=== PATIENT | female | born 1985 | race Caucasian/White ===

== ENCOUNTER → 2016-03-09 | Outpatient (CLI) | payer OTHER ==
[~2016-03-09] MED LIST: /ONDA4TA PO; /PANT40TA PO; ACET50TA PO; ALLE25CA OR; AMOX50SS OR; BACITAB3 PO; BUSP15TA47 PO; CALCIUM PO; CARA1TAB2 PO; CEFT250T PO; CELE10TA PO; CELE20TA OR; CELE20TA PO; CEPH2CAP PO; CLEO150C PO; CLEO300C2 PO; CLIN300C OR; COLA50CA3 PO; DIFL150T PO; GLUC1000 OR; LEVA750T PO; LEVO200T3 PO; LIDO5DIS PO; Lortab Elixir; Lortab Elixir PO; MIRA255PW PO; MULT1CHW21 PO; MULTIVIT; MULTIVIT OR; NS; ORAPRED PO; PERC2.5T PO; PRED10TA PO; PRED1TAB32 PO; SYNT100T OR; SYNT300T OR; SYNT300T2 PO; TYLE325T5 PO; TYLE500T78 PO; VITA50TA12 OR; WELL75TA OR; XANA0.25 PO; ZANT150T PO; [UNRECOGNIZED DRUG - OTHER] PO; lidocaine; lidocaine 2% PO; orapred PO; synthroid PO
[2016-03-09 12:36] LABS: FREE T4 1.36 NG/DL (0.76-1.46)
== END ==
LOC: M LAB 11:31
PROVIDERS: ATTEND Physician Assistant
DX: E89.0 Postprocedural hypothyroidism (principal)

== ENCOUNTER → 2016-03-25 | Outpatient (CLI) | payer OTHER ==
--- NOTE | 2016-03-26 04:34 | REP ---
Clinical: Abnormal thyroid function tests. Technique: Real time gallegos scale and color evaluation using linear high frequency transducer. Findings: The patient is noted to be status post thyroidectomy. Heterogeneous soft tissue mass in the right side of the neck measures 2.3 x 1.0 x 0.8 cm and appears relatively stable compared to prior examinations dated through 2012. A 5 x 2 x 4 mm hypoechoic lesion at the midline likely represent small lymph node. No further abnormalities are identified. Impression: Heterogeneous soft tissue mass in the right side of the neck is essentially unchanged compared to 2012 and may represent small area of residual thyroid tissue. Thyroid scintigraphy may be warranted for further investigation. Signed by Edison Curtis MD 03/26/2016 04:26 A
== END ==
LOC: M RAD 16:29
PROVIDERS: ATTEND Physician Assistant
DX: R94.6 Abnormal results of thyroid function studies (principal)

== ENCOUNTER 2016-07-10 20:49 | Emergency (ER) | payer OTHER ==
[~2016-07-10] VITALS: Ht 167.6 cm; Wt 93.0 kg
[2016-07-10] MEDS ORDERED: TOPA50TA7 PO (21:00)
[2016-07-10] MEDS ORDERED: ZOLO25TA PO (21:00)
[2016-07-10] MEDS ORDERED: METF1000 PO (21:00)
[2016-07-10 22:41] LABS: BASO % 0.5 % (0.0-1.0); EOS # 0.2 K/mm3 (0.0-0.50); EOS % 1.7 % (0.0-3.0); LARGE UNSTAINED CELL # 0.2 K/mm3 (0.0-0.4); LARGE UNSTAINED CELL % 1.7 % (0.0-4.0); LYMPH # 2.6 K/mm3 (1.5-4.5); LYMPH % 24.9 % (24.0-44.0); MEAN CORPUSCULAR HEMOGLOBIN 28.6 pg (27.0-33.0); MEAN CORPUSCULAR HGB CONC 32.7 g/dl (32.0-36.5); MEAN CORPUSCULAR VOLUME 87.4 fl (80.0-96.0); MONO # 0.5 K/mm3 (0.0-0.8); NEUTROPHILS # 6.9 K/mm3 (1.8-7.7); NEUTROPHILS % 66.2 % (36.0-66.0); PLATELET COUNT, AUTOMATED 505 k/mm3 (150-450); RED CELL DISTRIBUTION WIDTH 13.2 % (11.5-14.5); WHITE BLOOD COUNT 10.4 K/mm3 (4.0-10.0)
[2016-07-10 23:11] LABS: ALBUMIN 3.9 GM/DL (3.2-5.2); ALKALINE PHOSPHATASE 91 U/L (45-117); ALT/SGPT 25 U/L (12-78); ANION GAP 7 MEQ/L (8-16); AST/SGOT 13 U/L (15-37); BILIRUBIN,DIRECT < 0.1 MG/DL (0.0-0.2); BILIRUBIN,TOTAL 0.3 MG/DL (0.2-1.0); BLOOD UREA NITROGEN 12 MG/DL (7-18); CARBON DIOXIDE LEVEL 26 MEQ/L (21-32); CHLORIDE LEVEL 110 MEQ/L (98-107); CREATININE FOR GFR 0.83 MG/DL (0.55-1.02); GLOMERULAR FILTRATION RATE > 60.0 (>60); GLUCOSE, FASTING 65 MG/DL (70-105); POTASSIUM SERUM 3.4 MEQ/L (3.5-5.1); SODIUM LEVEL 143 MEQ/L (136-145); T UPTAKE 38 % (30-39); THYROXINE (T4) 10.8 UG/DL (4.5-12.0); TOTAL PROTEIN 7.8 GM/DL (6.4-8.2)
[2016-07-10 23:50] VITALS: BP 110/59
== END 2016-07-10 23:59 | disposition home or self-care (01) ==
LOC: M ED 23:05
DX: E16.2 Hypoglycemia, unspecified (principal); Z98.84 Bariatric surgery status; J45.909 Unspecified asthma, uncomplicated; F32.9 Major depressive disorder, single episode, unspecified; F41.9 Anxiety disorder, unspecified; E28.2 Polycystic ovarian syndrome; G47.33 Obstructive sleep apnea (adult) (pediatric); Z85.850 Personal history of malignant neoplasm of thyroid

== ENCOUNTER → 2016-08-25 | Outpatient (CLI) | payer OTHER ==
[~2016-08-25] MED LIST changes: +BACITAB PO; -BACITAB3 PO; -LEVA750T PO; +LEVA750T7 PO; +METF10004 PO; +TOPA50TA8 PO; +ZOLO25TA PO
[2016-08-25 13:46] LABS: FREE T4 1.4 NG/DL (0.76-1.46)
== END ==
LOC: M LAB 11:17
PROVIDERS: ATTEND Physician Assistant
DX: E89.0 Postprocedural hypothyroidism (principal)

== ENCOUNTER → 2016-09-08 | Outpatient (CLI) | payer MEDICAID | LOC: M OUTALCOH 10:31 | PROVIDERS: ATTEND Psychiatry & Neurology Psychiatry | DX: Z13.9 Encounter for screening, unspecified (principal) ==

== ENCOUNTER → 2017-01-07 | Outpatient (CLI) | payer OTHER ==
[2017-01-07 17:05] LABS: FREE T4 1.15 NG/DL (0.76-1.46)
== END ==
LOC: M LAB 15:39
PROVIDERS: ATTEND Physician Assistant
DX: E05.80 Other thyrotoxicosis without thyrotoxic crisis or storm (principal); E16.2 Hypoglycemia, unspecified

== ENCOUNTER → 2017-03-23 | Outpatient (CLI) | payer OTHER ==
[2017-03-23 18:08] LABS: HEMATOCRIT 40.5 % (36.0-47.0); HEMOGLOBIN 13.4 g/dl (12.0-16.0); MEAN CORPUSCULAR HEMOGLOBIN 27.9 pg (27.0-33.0); MEAN CORPUSCULAR HGB CONC 33.1 g/dl (32.0-36.5); MEAN CORPUSCULAR VOLUME 84.4 fl (80.0-96.0); PLATELET COUNT, AUTOMATED 470 10^3/uL (150-450); RED CELL DISTRIBUTION WIDTH 14.1 % (11.5-14.5); WHITE BLOOD COUNT 8.1 10^3/uL (4.0-10.0)
[2017-03-23 19:42] LABS: IRON (FE) 165 UG/DL (50-170)
[2017-03-23 19:42] LABS: FERRITIN 19 NG/ML (8-252)
== END ==
LOC: M LAB 17:00
DX: E89.0 Postprocedural hypothyroidism (principal); Z98.84 Bariatric surgery status
CPT/HCPCS: 83540

== ENCOUNTER 2017-04-14 19:24 | Emergency (ER) | payer OTHER ==
[2017-04-14] MEDS: NS 1,000 ML IV (20:30)
[2017-04-14] MEDS: GI COCKTAIL 50ML BTL(HYOSCYAMINE/MAALOX/LIDOCAINE VISCOUS)(1:3:1) PO (21:11)
[2017-04-14] MEDS: PANTOPRAZOLE 40MG INJ (PROTONIX) (C9113) IV (21:11)
[2017-04-14 21:19] LABS: BASO % 0.3 % (0.0-1.0); HEMATOCRIT 36.7 % (36.0-47.0); IMMATURE GRANULOCYTE % 0.3 % (0-3.0); LYMPH # 2.5 10^3/uL (1.5-4.5); LYMPH % 21.7 % (24.0-44.0); MEAN CORPUSCULAR HGB CONC 32.7 g/dl (32.0-36.5); MEAN CORPUSCULAR VOLUME 85.5 fl (80.0-96.0); MONO % 8.2 % (0.0-5.0); NEUTROPHILS % 69.5 % (36.0-66.0); PLATELET COUNT, AUTOMATED 508 10^3/uL (150-450); RED BLOOD COUNT 4.29 10^6/uL (4.00-5.40); RED CELL DISTRIBUTION WIDTH 14.2 % (11.5-14.5); WHITE BLOOD COUNT 11.6 10^3/uL (4.0-10.0)
[2017-04-14 21:36] LABS: ALBUMIN 3.7 GM/DL (3.2-5.2); ALBUMIN/GLOBULIN RATIO 1.06 (1.00-1.93); ALKALINE PHOSPHATASE 105 U/L (45-117); ALT/SGPT 20 U/L (12-78); ANION GAP 7 MEQ/L (8-16); AST/SGOT 19 U/L (7-37); BILIRUBIN,TOTAL 0.1 MG/DL (0.2-1.0); BLOOD UREA NITROGEN 16 MG/DL (7-18); CALCIUM LEVEL 8.4 MG/DL (8.5-10.1); CARBON DIOXIDE LEVEL 29 MEQ/L (21-32); CHLORIDE LEVEL 105 MEQ/L (98-107); CREATININE FOR GFR 0.65 MG/DL (0.55-1.30); GLOMERULAR FILTRATION RATE > 60.0 (>60); GLUCOSE, FASTING 80 MG/DL (70-100); LIPASE 146 U/L (73-393); POTASSIUM SERUM 3.7 MEQ/L (3.5-5.1); SODIUM LEVEL 141 MEQ/L (136-145); TOTAL PROTEIN 7.2 GM/DL (6.4-8.2)
[2017-04-14 21:39] LABS: APPEARANCE, URINE CLEAR (CLEAR); BACTERIA, URINE AUTO NEGATIVE (NEGATIVE); BILIRUBIN, URINE AUTO NEGATIVE (NEGATIVE); BLOOD, URINE BLOOD NEGATIVE (NEGATIVE); COLOR, URINE STRAW (YELLOW); GLUCOSE, URINE (UA) AUTO NEGATIVE (NEGATIVE); KETONE, URINE AUTO NEGATIVE (NEGATIVE); LEUKOCYTE ESTERASE, URINE AUTO NEGATIVE (NEGATIVE); NITRITE, URINE AUTO NEGATIVE (NEGATIVE); PROTEIN, URINE AUTO NEGATIVE (NEGATIVE); RBC, URINE AUTO 0 /HPF (0-3); SPECIFIC GRAVITY URINE AUTO 1.012 (1.002-1.035); SQUAMOUS EPITHELIAL CELL UR AU 0 /HPF (0-6); UROBILINOGEN, URINE AUTO 0.2 mg/dL (0.0-2.0); WBC, URINE AUTO 3 /HPF (0-3)
[2017-04-14] MEDS: ACETAMINOPHEN 325 MG TAB PO (22:44)
[2017-04-14] MEDS: GASTROGRAFIN SOLUTION 30ML PO ×2 (23:00→23:23)
[2017-04-15] MEDS ORDERED: ISOVUE-370 76% 100ML VIAL (Q9967) As Ordered (00:08)
== END 2017-04-15 01:23 | disposition home or self-care (01) ==
LOC: M ED 04-15 01:23
DX: K29.70 Gastritis, unspecified, without bleeding (principal); J45.909 Unspecified asthma, uncomplicated; E28.2 Polycystic ovarian syndrome; Z98.84 Bariatric surgery status; Z79.899 Other long term (current) drug therapy; Z88.8 Allergy status to other drugs, medicaments and biological substances
CPT/HCPCS: C9113

== ENCOUNTER 2017-04-24 18:58 | Inpatient (IN) | payer OTHER ==
[2017-04-24 20:41] LABS: KETONE, URINE AUTO RFX TRACE mg/dL (NEGATIVE); LEUKOCYTE ESTERASE UR AUTO RFX TRACE (NEGATIVE); MUCUS, URINE RFX SMALL (NEGATIVE); NITRITE, URINE AUTO RFX NEGATIVE (NEGATIVE); RBC, URINE AUTO RFX 3 /HPF (0-3); SPECIFIC GRAVITY UR AUTO RFX 1.025 (1.002-1.035); SQUAM EPITHELIAL CELL UR AURFX 11 /HPF (0-6); WBC, URINE AUTO RFX 4 /HPF (0-3)
[2017-04-24 22:04] LABS: BASO # 0.1 10^3/uL (0.0-0.2); BASO % 0.7 % (0.0-1.0); HEMATOCRIT 38.6 % (36.0-47.0); HEMOGLOBIN 12.7 g/dl (12.0-16.0); IMMATURE GRANULOCYTE % 0.3 % (0-3.0); LYMPH # 2.5 10^3/uL (1.5-4.5); LYMPH % 22.3 % (24.0-44.0); MEAN CORPUSCULAR HEMOGLOBIN 28.1 pg (27.0-33.0); MEAN CORPUSCULAR HGB CONC 32.9 g/dl (32.0-36.5); MEAN CORPUSCULAR VOLUME 85.4 fl (80.0-96.0); MONO # 0.8 10^3/uL (0.0-0.8); MONO % 6.9 % (0.0-5.0); NEUTROPHILS # 7.8 10^3/uL (1.8-7.7); NEUTROPHILS % 69.8 % (36.0-66.0); PLATELET COUNT, AUTOMATED 546 10^3/uL (150-450); RED BLOOD COUNT 4.52 10^6/uL (4.00-5.40); RED CELL DISTRIBUTION WIDTH 14.5 % (11.5-14.5); WHITE BLOOD COUNT 11.1 10^3/uL (4.0-10.0)
[2017-04-24] MEDS: NS 1,000 ML IV (22:21)
[2017-04-24] MEDS: METOCLOPRAMIDE INJ 10MG/2ML VIAL (J2765) IV (22:21)
[2017-04-24] MEDS: MORPHINE 4 MG/ML 1ML VIAL (J2270) IV (22:29)
[2017-04-24 22:30] LABS: ALBUMIN 3.8 GM/DL (3.2-5.2); ALBUMIN/GLOBULIN RATIO 0.93 (1.00-1.93); ALKALINE PHOSPHATASE 88 U/L (45-117); ALT/SGPT 25 U/L (12-78); ANION GAP 7 MEQ/L (8-16); AST/SGOT 26 U/L (7-37); BILIRUBIN,DIRECT 0.1 MG/DL (0.0-0.2); BILIRUBIN,TOTAL 0.2 MG/DL (0.2-1.0); BLOOD UREA NITROGEN 5 MG/DL (7-18); CALCIUM LEVEL 9.2 MG/DL (8.5-10.1); CARBON DIOXIDE LEVEL 31 MEQ/L (21-32); CHLORIDE LEVEL 103 MEQ/L (98-107); CREATININE FOR GFR 0.76 MG/DL (0.55-1.30); GLOMERULAR FILTRATION RATE > 60.0 (>60); GLUCOSE, FASTING 85 MG/DL (70-100); LIPASE 84 U/L (73-393); POTASSIUM SERUM 3.8 MEQ/L (3.5-5.1); SODIUM LEVEL 141 MEQ/L (136-145); TOTAL PROTEIN 7.9 GM/DL (6.4-8.2)
[2017-04-24] MEDS ORDERED: ISOVUE-370 76% 100ML VIAL (Q9967) As Ordered (22:34)
[2017-04-25] MEDS: LR 1,000 ML IV ×4 (01:45→22:00)
[2017-04-25] MEDS: KETOROLAC 30 MG/ML VIAL (J1885) IV ×2 (01:45→20:36)
[2017-04-25] MEDS: ACETAMINOPHEN TAB 650MG DOSE (2X325MG) PO (07:35)
[2017-04-25] MEDS: PANTOPRAZOLE 40MG INJ (PROTONIX) (C9113) IV (08:11)
[2017-04-25] MEDS: MORPHINE 4 MG/ML 1ML VIAL (J2270) IV (08:19)
[2017-04-25] MEDS: ONDANSETRON 4MG/2ML VIAL (J2405) IV ×2 (08:21→18:19)
[2017-04-25 11:29] LABS: HCG, SERUM QUANTITATIVE < 1.0 MIU/ML
[2017-04-25] MEDS: ERTAPENEM 1 GM INJ (INVanz) (J1335) As Ordered (14:25)
[2017-04-25] MEDS ORDERED: fentaNYL 250 MCG/5 ML INJECTION (J3010) As Ordered (14:38)
[2017-04-25] MEDS ORDERED: MIDAZOLAM INJ 2 MG/2 ML VIAL (J2250) As Ordered (14:38)
[2017-04-25] MEDS ORDERED: PROPOFOL 200 MG/20 ML VIAL As Ordered (14:39)
[2017-04-25] MEDS ORDERED: LIDOCAINE 2% INJ 100 MG/5 ML SDV (FOR ANES.) As Ordered (14:39)
[2017-04-25] MEDS ORDERED: ROCURONIUM BROMIDE 50 MG/5 ML VIAL As Ordered ×2 (14:41→16:31)
[2017-04-25] MEDS ORDERED: SUCCINYLCHOLINE 100 MG/5 ML SYRINGE (J0330) As Ordered (15:16)
[2017-04-25] MEDS ORDERED: ONDANSETRON 4MG/2ML VIAL (J2405) As Ordered ×2 (16:44→18:17)
[2017-04-25] MEDS ORDERED: GLYCOPYRROLATE INJ 0.2 MG/ML 2 ML VIAL As Ordered (16:44)
[2017-04-25] MEDS ORDERED: KETOROLAC 60 MG/2 ML VIAL (J1885) As Ordered (16:44)
[2017-04-25] MEDS ORDERED: NEOSTIGMINE 10 MG/10 ML VIAL (J2710) As Ordered (16:44)
[2017-04-25] MEDS ORDERED: METOCLOPRAMIDE INJ 10MG/2ML VIAL (J2765) As Ordered (16:45)
[2017-04-25] MEDS: BUPIVACAINE HCL 0.25% 30 ML VIAL As Ordered (17:25)
[2017-04-25] MEDS ORDERED: METOCLOPRAMIDE INJ 10MG/2ML VIAL (J2765) IV (18:15)
[2017-04-25] MEDS ORDERED: MORPHINE 10 MG/ML 1ML VIAL (J2270) IV (18:15)
[2017-04-25] MEDS ORDERED: fentaNYL 100 MCG/2 ML INJECTION (J3010) IV (18:15)
[2017-04-26] MEDS: MORPHINE 4 MG/ML 1ML VIAL (J2270) IV (00:18)
[2017-04-26] MEDS: ONDANSETRON 4MG/2ML VIAL (J2405) IV (00:18)
[2017-04-26] MEDS: KETOROLAC 30 MG/ML VIAL (J1885) IV (04:19)
[2017-04-26] MEDS: ACETAMINOPHEN TAB 650MG DOSE (2X325MG) PO (04:20)
[2017-04-26] MEDS: LEVOTHYROXINE 150MCG TABLET (0.15MG) PO (06:04)
[2017-04-26] MEDS: OMEPRAZOLE 20 MG CAP PO (09:01)
[2017-04-26] MEDS: NORCO, ANEXSIA 5/325MG TABLET (HYDROcodone/ACETAMINOPHEN) PO (13:05)
== END 2017-04-26 16:00 | disposition home or self-care (01) | DRG 227 ==
LOC: M ED INP 04-25 00:55 → M PED 04-25 18:34 → M ED 18:58
PROC: 0WQF4ZZ Repair Abdominal Wall, Percutaneous Endoscopic Approach (ICD-10-PCS; principal; 2017-04-25 11:33)
PROC: 0DBW4ZX Excision of Peritoneum, Percutaneous Endoscopic Approach, Diagnostic (ICD-10-PCS; 2017-04-25 11:33)
DX: K46.0 Unspecified abdominal hernia with obstruction, without gangrene (principal); K56.50 Intestinal adhesions [bands], unspecified as to partial versus complete obstruction; Z85.850 Personal history of malignant neoplasm of thyroid; E28.2 Polycystic ovarian syndrome; F41.9 Anxiety disorder, unspecified; F32.9 Major depressive disorder, single episode, unspecified; E89.0 Postprocedural hypothyroidism; Z90.81 Acquired absence of spleen; E66.9 Obesity, unspecified

== ENCOUNTER → 2017-05-22 | Outpatient (CLI) | payer OTHER | LOC: M RAD 07:31 | DX: R10.9 Unspecified abdominal pain (principal) ==

== ENCOUNTER → 2017-06-19 | Outpatient (CLI) | payer OTHER | LOC: M SLEEP 08:36 | DX: R56.9 Unspecified convulsions (principal) ==

== ENCOUNTER → 2017-09-08 | Outpatient (CLI) | payer OTHER ==
[2017-09-08 11:07] LABS: FREE T4 0.71 NG/DL (0.76-1.46)
== END ==
LOC: M LAB 10:15
DX: E89.0 Postprocedural hypothyroidism (principal)
CPT/HCPCS: 84443

== ENCOUNTER 2018-02-19 15:50 | Inpatient (IN) | payer OTHER ==
[~2018-02-19] VITALS: Ht 167.6 cm; Wt 114.4 kg
[~2018-02-19 15:50] MED LIST changes: +CVS20TAB PO; +FLUO40CA PO; +NORCOTAB PO; +OMEP20CA3 PO; +PROT1TAB2 PO; +VITACHTA PO
[2018-02-19] MEDS ORDERED: DEXTROSE 50% 50 ML SYRINGE As Ordered ONE (17:38)
[2018-02-19] MEDS ORDERED: DEXTROSE 50% 50 ML SYRINGE IV STA (17:42)
[2018-02-19 17:55] LABS: HEMATOCRIT 41.8 % (36.0-47.0); HEMOGLOBIN 13.8 g/dl (12.0-15.5); MEAN CORPUSCULAR HEMOGLOBIN 29.1 pg (27.0-33.0); MEAN CORPUSCULAR VOLUME 88.2 fl (80.0-96.0); PLATELET COUNT, AUTOMATED 465 10^3/uL (150-450); RED BLOOD COUNT 4.74 10^6/uL (4.00-5.40); WHITE BLOOD COUNT 9.2 10^3/uL (4.0-10.0)
[2018-02-19 18:23] LABS: BLOOD UREA NITROGEN 6 MG/DL (7-18); CALCIUM LEVEL 8.1 MG/DL (8.5-10.1); CARBON DIOXIDE LEVEL 25 MEQ/L (21-32); CHLORIDE LEVEL 110 MEQ/L (98-107); CREATININE FOR GFR 0.82 MG/DL (0.55-1.30); GLOMERULAR FILTRATION RATE > 60.0 (>60); GLUCOSE, FASTING 36 MG/DL (70-100); POTASSIUM SERUM 3.5 MEQ/L (3.5-5.1); SODIUM LEVEL 145 MEQ/L (136-145)
[2018-02-19] MEDS ORDERED: D10W/0.45% SODIUM CHLORIDE 1,000 ML IV SCH (18:45)
[2018-02-19 18:54] LABS: HEMOGLOBIN A1c 5.3 %
[2018-02-19] MEDS: D5W/0.45% SODIUM CHLORIDE 1,000 ML IV SCH ×3 (19:00→20:45)
[2018-02-19] MEDS ORDERED: SYNT25TA PO (20:27)
[2018-02-19] MEDS ORDERED: TOPI50TA9 PO (20:29)
[2018-02-19] MEDS ORDERED: PHEN-239 PO (20:29)
[2018-02-19] MEDS ORDERED: PATIENT COMMENTS (20:32)
[2018-02-19] MEDS ORDERED: GLUCAGON FOR INJ 1 MG VIAL (J1610) SC PRN (20:45)
[2018-02-19] MEDS ORDERED: DEXTROSE 50% 50 ML SYRINGE IV PRN (20:45)
[2018-02-19] MEDS ORDERED: GLUCOSE 4 GM CHEW TABLET PO PRN (20:45)
[2018-02-19] MEDS ORDERED: ACETAMINOPHEN 500 MG TAB PO PRN (20:45)
--- NOTE | 2018-02-19 22:17 | REPVR ---
EXAM: US Soft Tissue Head and Neck, Thyroid EXAM DATE/TIME: 02/19/2018 9:26 PM CLINICAL HISTORY: 32 years old, female; Screening exam; Personal history of cancer; Thyroid; Prior surgery; Surgery date: 6+ months; Surgery type: Bilateral thyroidectomy in 2006; Patient HX: Known regrowth from 2017 ultrasound; Additional info: HX thyroid cancer, S/P thyroidectomy(2006) TECHNIQUE: Real-time ultrasound scan of the neck with image documentation. Exam focused on the thyroid. COMPARISON: Thyroid, ST head+neck US 03/25/2016 4:45 PM FINDINGS: The patient has a history of previous thyroidectomy in 2006. In the region of the right lobe of the thyroid there is an oval area of tissue 2.3 CM in length by 1 CM in thickness and unchanged in size and appearance since 2017. This is probably residual or recurrent thyroid tissue. Along the left lobe of the thyroid there is a 1 CM in length by 6 mm in thickness soft tissue structure probably also remaining thyroid tissue. Reviewing the previous examination I suspect this is present as seen on the previous transverse images. No evidence of abnormality in the isthmus. IMPRESSION: 1. 2.3 CM by 1 CM area of residual thyroid tissue on the right unchanged since 2017. Electronically signed by: Juanito Hilton On 02/19/2018 22:16:47 PM
[2018-02-19 22:32] LABS: FREE T3 0.9 PG/ML (2.2-4.0); FREE T4 0.23 NG/DL (0.76-1.46)
[2018-02-19 22:54] LABS: ALBUMIN 3.3 GM/DL (3.2-5.2); ALT/SGPT 26 U/L (12-78); BILIRUBIN,DIRECT < 0.1 MG/DL (0.0-0.2); BILIRUBIN,TOTAL 0.2 MG/DL (0.2-1.0); TOTAL PROTEIN 6.8 GM/DL (6.4-8.2)
--- NOTE | 2018-02-20 00:02 | HPEPDOC ---
[facility] Medical History & Physical Date of Admission Feb 19, 2018 Primary Care Physician: Eliz Coughlin SENIOR FACILITIES MANAGER Attending Physician: TIAGO LIU MD History and Physical PRIMARY CARE PROVIDER: Ofelia Coughlin ATTENDING: Dr. Liu CHIEF COMPLAINT: Hypoglycemia HISTORY OF PRESENT ILLNESS: Patient is a 32-year-old female with significant past medical history of yair-en-Y gastric bypass presenting with chief complaint of recurrent hypoglycemia. She states earlier today in the afternoon she was eating a slice of pizza and then lay down for nap, when she woke up she had blurry vision, felt "drunk", and was profusely diaphoretic. She checked her blood sugar and her glucose was 31, so she ate some nearby candy to try and get her blood sugar back up, after which it was in the 70s. She states a similar event happen last May when she was on a dietary supplements but it resolved on its own. She states this happens from time to time but she is usually aware when her blood sugar starts to get low. She has not been taking her metformin (for PCOS) for last 2 weeks because she is on a teacher on and didn't want to take it. She also has been off her Topamax and phentermine for the same amount of time, which she takes at the direction of her bariatric surgeon has a weight loss drug for the past 3 months. She states that once a week she has nausea and feels the need to make herself throw up because she has such a great amount of postprandial fullness, she states this has been going on for the last 3 months. Of note she recently went to her wood ski maker at [employer] in [place] where she was found to have a TSH of 180 last Thursday, so her wood ski maker wanted to switch her from levothyroxine to armour but her insurance would not cover it so she is attempting to switch her insurance. As result she did not take her levothyroxine today. 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 Drinks occasional alcohol at social events. No marijuana, heroin, cocaine, PCP. FAMILY HISTORY: ALLERGIES: Please see below. REVIEW OF SYSTEMS: GENERAL: Denies fevers, chills, recent unexpected weight change, hemoptysis HEENT: Currently denies headache, dizziness, vision changes, hearing loss, sore throat CARDIOVASCULAR: Denies chest pain,palpitations, orthopnea RESPIRATORY: Denies shortness of breath, wheezing, cough GASTROINTESTINAL: Denies current nausea, vomiting, abdominal pain, constipation, bloody stool. Admits to chronic diarrhea secondary to her Yair-en-Y procedure. GENITOURINARY: Denies dysuria,urinary urgency, hematuria. MUSCULOSKELETAL: Denies muscle/joint pain, weakness, stiffness NEUROLOGICAL: Denies any numbness/tingling, focal weakness, or syncope Chronic diarrhea since her Yair-en-Y procedure, admits to feeling fatigued currently. HOME MEDICATIONS: Please see below. PHYSICAL EXAMINATION: Vitals: (see below) General: No acute distress, laying comfortably in bed. HEENT: Normocephalic, atraumatic. EOMI. Moist mucous membranes. Neck: No JVD or lymphadenopathy Cardiac: RRR, normal S1 and S2. No murmurs, gallops, rubs. Pulm: Clear to auscultation b/l. No wheezing, crackles, rhonchi Abd: Obese abdomen. Soft, non-tender, non-distended, no guarding, rebound tenderness, or rigidity. BSx4. Ext: No edema or cyanosis Neuro: Strength 5/5 BUE and BLE. CN 3-12 grossly intact. Sensation to fine touch intact. LABORATORY DATA: See below. IMAGIN02/19/18 Thyroid ultrasound: 2.3 cm X 1 cm area of residual thyroid tissue on the right unchanged since 2017 MICROBIOLOGY: Please see below. ASSESSMENT/PLAN: 32-year-old female presenting with chief complaint of recurrent episodes of hypoglycemia of unknown etiology differential diagnosis includes medication induced, insulinoma, adrenal tumor, pituitary tumor,noninsulinoma pancreatogenous hypoglycemia, post gastric bypass hypoglycemia. #. Hypoglycemia Giving patient D5 half-normal saline at 1 or 25 mL per hour with every 2 hours fingersticks. Should patient experience hypoglycemia we will switch to D10 Hemoglobin A1c of 5.3 Patient on hypoglycemic protocol Also obtaining labs for secondary causes of hypoglycemia including C-peptide, IGF-I, 2, proinsulin, insulin antibody, insulin level, sulfonylurea screen) Also ordering a.m. cortisol level to assess for possible adrenal dysfunction. Defer abdominal CT imaging to a.m. team to work up possible pancreatic, adrenal, or pituitary tumors. #. Hypothyroidism TSH grossly elevated, unclear if this is because patient has not been on thyroid medication or because it is no longer a therapeutic dose For now, continue home dose of Synthroid Consider endocrinology consult in a.m. #. PCOS Currently holding home medication in light of hypoglycemic episodes, she has been off this for 2 weeks anyway #. Anxiety/depression Patient currently not on any home medication -DVT prophy: Teds and sequentials, Enoxaparin Patient will be admitted to pediatric floor to be seen by hospitalist day team in the a.m. Vital Signs Vital Signs Date Time Temp Pulse Resp B/P (MAP) Pulse Ox O2 Delivery O2 Flow Rate FiO2 02/19/18 18:20 93 95 02/19/18 16:53 97.9 16 113/74 (87) 02/19/18 15:50 Room Air Laboratory Data Labs 24H Laboratory Tests 2 02/19/18 17:34: Bedside Glucose (Misc Panel) 30*L 02/19/18 17:43: Nucleated Red Blood Cells % (auto) 0.0, Anion Gap 10, Glomerular Filtration Rate > 60.0, Estimated Mean Plasma Glucose 105, Hemoglobin A1c 5.3, Blood Urea Nitrogen 6L, Creatinine 0.82, Sodium Level 145, Potassium Level 3.5, Chloride Level 110H, Carbon Dioxide Level 25, Calcium Level 8.1L 02/19/18 18:34: Bedside Glucose (Misc Panel) 78 02/19/18 19:07: Bedside Glucose (Misc Panel) 82 02/19/18 19:53: Bedside Glucose (Misc Panel) 85 02/19/18 20:26: Bedside Glucose (Misc Panel) 86 CBC/BMP Laboratory Tests 02/19/18 17:43 Red Blood Count 4.74, Mean Corpuscular Volume 88.2, Mean Corpuscular Hemoglobin 29.1, Mean Corpuscular Hemoglobin Concent 33.0, Red Cell Distribution Width 14.9 H, Calcium Level 8.1 L Home Medications Scheduled Levothyroxine Sodium (Levo-T) 200 Mcg Tab, 400 MCG PO DAILY for hypothyroid Liothyronine Sodium (Liothyronine Sodium) 25 Mcg Tab, 1 TAB PO DAILY Pantoprazole Sodium (Pantoprazole Sodium) 40 Mg Tab, 40 MG PO DAILY Scheduled PRN Acetaminophen (Tylenol Extra Strength) 500 Mg Tab, 1,000 MG PO Q4H PRN for PAIN OR FEVER Miscellaneous Medications [Patient Comments] PATIENT STATES SHE HAS SWITCHED PHARMACIES SO SHE'S UNSURE WHEN SHE LAST TOOK ANY OF HER MEDICATIONS Allergies Coded Allergies: Dexamethasone (Verified Allergy, Severe, ANAPHYLAXIS, 02/19/18) PT HAD ADVERSE REACTION TO DECADRON DURING PREVIOUS HOSPITAL ADMISSION. PT STATES HER THROAT BECAN TO CLOSE, SHE BECAME HYPOTENSIVE AND HAD A HEART RATE IN THE 20'S AFTER DECADRON WAS ADMINISTERED. Grass (Verified Allergy, Unknown, 02/19/18) HAY FEVER (Verified Allergy, Unknown, 02/19/18) Pollen Extract (Verified Allergy, Unknown, 02/19/18) GME ATTESTATION GME ATTESTATION My faculty preceptor for this patient encounter was physically present during the encounter and was fully available. All aspects of the patient interview, examination, medical decision making process, and medical care plan development were reviewed and approved by the faculty preceptor. The faculty preceptor is aware and concurs with the plan as stated in the body of this note and will attest to such by his/her cosignature. ATTENDING NOTE I have both independently examined this patient as well as reviewed H and P. I have discussed in detail with the resident the findings and plan of treatment as documented in the residents note. KEYSHA WILLIS DO Feb 20, 2018 00:02 TIAGO LIU MD Feb 22, 2018 20:08
[2018-02-20 01:10] VITALS: BP 118/80
[2018-02-20] MEDS: D5W/0.45% SODIUM CHLORIDE 1,000 ML IV SCH (04:03)
[2018-02-20] MEDS ORDERED: LEVOTHYROXINE 25MCG TABLET (0.025MG) PO SCH (06:00)
[2018-02-20] MEDS ORDERED: LEVOTHYROXINE 150MCG TABLET (0.15MG) PO SCH (06:00)
[2018-02-20 07:55] LABS: HEMATOCRIT 37.5 % (36.0-47.0); HEMOGLOBIN 12.5 g/dl (12.0-15.5); MEAN CORPUSCULAR HEMOGLOBIN 28.8 pg (27.0-33.0); MEAN CORPUSCULAR HGB CONC 33.3 g/dl (32.0-36.5); MEAN CORPUSCULAR VOLUME 86.4 fl (80.0-96.0); PLATELET COUNT, AUTOMATED 440 10^3/uL (150-450); RED BLOOD COUNT 4.34 10^6/uL (4.00-5.40)
[2018-02-20 08:00] VITALS: BP 118/72
[2018-02-20] MEDS ORDERED: metFORMIN (GLUCOPHAGE) 1000 MG TABLET PO SCH (08:00)
[2018-02-20] MEDS: PANTOPRAZOLE 40MG TAB (PROTONIX) PO SCH (08:18)
[2018-02-20] MEDS ORDERED: ENOXAPARIN 40 MG/0.4 ML SYRINGE (J1650) SC SCH (09:00)
[2018-02-20] MEDS ORDERED: TOPIRAMATE (TopAMAX) 25 MG TAB PO SCH (09:00)
[2018-02-20] MEDS ORDERED: LIOTHYRONINE 25 MCG TAB PO ONE (12:00)
[2018-02-20 16:00] VITALS: BP 118/68
--- NOTE | 2018-02-20 16:44 | IPNPDOC ---
Text Note Date of Service The patient was seen on 02/20/18. NOTE Subjective: Patient is a 32-year-old female with a PMHx of Gastric bypass (Juancho-en-Y, 2013), Hypothyroidism (s/p Thyroidectomy) and PCOS who presented to the ER with complaints of low blood sugar after she ate pizza. Patient has described symptoms of confusion and excessive sweating. Her glucose was found to be 31. Patient has noted that she's been experiencing symptoms of low blood sugar of last 1-1/2 years. She's been told that has been attributed to her gastric bypass; described as reflexive of hypoglycemia. Patient follows with [facility] in [place]. Was recently told she had a TSH of 180. Was advised to take activated thyroid hormone ([place]) however was unable to get the medication because of insurance issues. Patient was seen and examined at the bedside. Currently patient notes that she's asymptomatic. Denies any chest pain, shortness of breath or palpitations. Denies nausea, vomiting, abdominal pain, constipation, diarrhea or discomfort with urination. Objective: Vitals (See below) General: Lying in bed, no acute distress, comfortable, AAOx3 HEENT: NC, AT CVS: RRR, +S1S2 Lungs: Fair air entry b/l, -w/r/r Abdomen: Soft, ND, NT Extremities: - Edema, - Calf tenderness Assessment and plan: Hypoglycemia - likely 2/2 post-operative complications from gastric bypass, less likely insulinoma or exogenous consumption of diabetic medications - Patient is describe symptoms of hypoglycemia occurring shortly after consuming a large carbohydrate meal - Patient has noted that she's experience symptoms of hypoglycemia over the last 1.5 years - Patient's glucose has remained well controlled within normal range - Workup for hypoglycemia; including insulinoma and drug measures for oral consumption of diabetic medications remains pending - s/p dextrose based IV fluids - Will continue to monitor patient's glucose every 4 hours - Will adjust diet to consistent carbohydrate diet (low carb / small portions / frequent servings) Hypothyroidism - There are no symptoms of myxedema coma; patient does not have any altered mental status, is not bradycardic, no evidence of LE edema - Patient has had a total thyroidectomy completed - TSH found to be remarkably elevated with suppressed T4 and T3 - Thyroids US 02/19: 2.3 CM by 1 CM area of residual thyroid tissue on the right unchanged since 2017. - Will adjust Levothyroxine to 400 mcg; has been on 325 mcg for 8 months - Will add Liothyronine 25 mcg daily - Will check daily TSH / Free T4 / Total T3 PCOS - Currently not on medications - Has stopped taking Metformin Anxiety / Depression - Currently not on medications DVT prophylaxis - c/w Lovenox This is a patient of Ofelia Coughlin; will transition the patient to their care. VS,Fishbone, I+O VS, Fishbone, I+O Laboratory Tests 02/19/18 17:43 Red Blood Count 4.74, Mean Corpuscular Volume 88.2, Mean Corpuscular Hemoglobin 29.1, Mean Corpuscular Hemoglobin Concent 33.0, Red Cell Distribution Width 14.9 H, Calcium Level 8.1 L 02/20/18 07:41 Red Blood Count 4.34, Mean Corpuscular Volume 86.4, Mean Corpuscular Hemoglobin 28.8, Mean Corpuscular Hemoglobin Concent 33.3, Red Cell Distribution Width 14.8 H Vital Signs Date Time Temp Pulse Resp B/P (MAP) Pulse Ox O2 Delivery O2 Flow Rate FiO2 02/20/18 08:00 97.8 75 18 118/72 (87) 99 Room Air I&O- Last 24 Hours up to 6 AM 02/20/18 06:00 Intake Total 985 ml Output Total 200 ml Balance 785 ml KATI NEWSOME MD Feb 20, 2018 16:44
[2018-02-20 20:00] VITALS: BP 117/64
[2018-02-21] VITALS: BP 107/64
[2018-02-21] MEDS ORDERED: LEVOTHYROXINE 100MCG TABLET (0.1MG) PO SCH (06:00)
[2018-02-21 06:26] LABS: HEMATOCRIT 37.2 % (36.0-47.0); HEMOGLOBIN 12.4 g/dl (12.0-15.5); MEAN CORPUSCULAR HEMOGLOBIN 28.9 pg (27.0-33.0); MEAN CORPUSCULAR HGB CONC 33.3 g/dl (32.0-36.5); MEAN CORPUSCULAR VOLUME 86.7 fl (80.0-96.0); PLATELET COUNT, AUTOMATED 446 10^3/uL (150-450); RED BLOOD COUNT 4.29 10^6/uL (4.00-5.40); WHITE BLOOD COUNT 6.8 10^3/uL (4.0-10.0)
[2018-02-21 08:00] VITALS: BP 121/81
[2018-02-21] MEDS ORDERED: LIOTHYRONINE 25 MCG TAB PO SCH (09:00)
[2018-02-21 09:17] LABS: BLOOD UREA NITROGEN 6 MG/DL (7-18); CALCIUM LEVEL 8.1 MG/DL (8.5-10.1); CARBON DIOXIDE LEVEL 32 MEQ/L (21-32); CHLORIDE LEVEL 105 MEQ/L (98-107); FREE T4 0.43 NG/DL (0.76-1.46); GLOMERULAR FILTRATION RATE > 60.0 (>60); GLUCOSE, FASTING 73 MG/DL (70-100); POTASSIUM SERUM 3.8 MEQ/L (3.5-5.1); SODIUM LEVEL 143 MEQ/L (136-145)
[2018-02-21] MEDS ORDERED: PANT40TA3 PO (10:07)
[2018-02-21] MEDS ORDERED: LEVO-97 PO ×2 (10:07→10:33)
[2018-02-21] MEDS ORDERED: LIOT25TA2 PO (10:07)
[2018-02-21] MEDS ORDERED: FREEMIS42 TOP (10:07)
[2018-02-21] MEDS: PANTOPRAZOLE 40MG TAB (PROTONIX) PO SCH (10:29)
--- NOTE | 2018-02-21 17:28 | DS.PDOC ---
Discharge Summary General Date of Admission Feb 19, 2018 at 22:30 Date of Discharge 02/21/2018 Discharge Summary PROCEDURES PERFORMED DURING STAY: [None]. ADMITTING DIAGNOSES / DISCHARGE DIAGNOSES: Hypoglycemia - likely 2/2 post-operative complications from gastric bypass, less likely insulinoma or exogenous consumption of diabetic medications Hypothyroidism PCOS Anxiety / Depression DVT prophylaxis COMPLICATIONS/CHIEF COMPLAINT: Confusion and sweating HISTORY OF PRESENT ILLNESS: Patient is a 32-year-old female with a PMHx of Gastric bypass (Juancho-en-Y, 2013), Hypothyroidism (s/p Thyroidectomy) and PCOS who presented to the ER with complaints of low blood sugar after she ate pizza. Patient has described symptoms of confusion and excessive sweating. Her glucose was found to be 31. Patient has noted that she's been experiencing symptoms of low blood sugar of last 1-1/2 years. She's been told that has been attributed to her gastric bypass; described as reflexive of hypoglycemia. Patient follows with [facility] in [place]. Was recently told she had a TSH of 180. Was advised to take activated thyroid hormone ([place]) however was unable to get the medication because of insurance issues. HOSPITAL COURSE: Hypoglycemia - likely 2/2 post-operative complications from gastric bypass, less likely insulinoma or exogenous consumption of diabetic medications - Patient is describe symptoms of hypoglycemia occurring shortly after consuming a large carbohydrate meal - Patient has noted that she's experience symptoms of hypoglycemia over the last 1.5 years - Patient's glucose has remained well controlled within normal range without supplementation - Workup for hypoglycemia; including insulinoma and drug measures for oral consumption of diabetic medications remains pending - s/p dextrose based IV fluids - Divided patient instructions to check glucose four times daily and when experiencing symptoms - Advised patient to remain compliant with consistent carbohydrate diet (low carb / small portions / frequent servings) - Will have outpatient follow-up with Ofelia Coughlin and [facility] within the next 7 days Hypothyroidism - not likely 2/2 myxedema coma - Again there are is no altered mental status, no bradycardia, no evidence of LE edema - Patient has had a total thyroidectomy completed - TSH found to be remarkably elevated with suppressed T4 and T3; improving on discharge - Thyroids US 02/19: 2.3 CM by 1 CM area of residual thyroid tissue on the right unchanged since 2016. - c/w adjusted Levothyroxine and newly added Liothyronine - Will have outpatient follow-up with Ofelia Coughlin and [facility] within the next 7 days PCOS - Currently not on medications - Has stopped taking Metformin Anxiety / Depression - Currently not on medications Weight loss medications - Currently on hold DVT prophylaxis - c/w Lovenox DISCHARGE MEDICATIONS: Please see below. ALLERGIES: Please see below. PHYSICAL EXAMINATION ON DISCHARGE: Vitals (See below) General: Lying in bed, no acute distress, comfortable, AAOx3 HEENT: NC, AT CVS: RRR, +S1S2 Lungs: Fair air entry b/l, auscultation without wheezing / rhonchi / rales Abdomen: Soft, nondistended without tenderness Extremities: No evidence of edema, - Calf tenderness LABORATORY DATA: Please see below. ACTIVITY: [As tolerated]. DIET: Advised patient to remain compliant with consistent carbohydrate diet (low carb / small portions / frequent servings) DISCHARGE PLAN: - Will have outpatient follow-up with Ofelia Coughlin and [facility] within the next 7 days - Remain compliant with treatment plan and medications - Return to the ER if you experience any problems DISPOSITION: Home, Self-Care. DISCHARGE CONDITION: [Stable]. TIME SPENT ON DISCHARGE: Greater than [35] minutes. Vital Signs/I&Os Vital Signs Date Time Temp Pulse Resp B/P (MAP) Pulse Ox O2 Delivery O2 Flow Rate FiO2 02/21/18 08:00 98.9 72 18 121/81 (94) 98 02/21/18 00:00 Room Air I&O- Last 24 Hours up to 6 AM 02/21/18 06:00 Intake Total 2160 ml Output Total 4250 ml Balance -2090 ml Laboratory Data Labs 24H Laboratory Tests 2 02/20/18 19:14: Bedside Glucose (Misc Panel) 180H 02/20/18 20:23: Bedside Glucose (Misc Panel) 88 02/20/18 23:50: Bedside Glucose (Misc Panel) 78 02/21/18 04:06: Bedside Glucose (Misc Panel) 73 02/21/18 06:14: Nucleated Red Blood Cells % (auto) 0.0, Anion Gap 6L, Glomerular Filtration Rate > 60.0, Blood Urea Nitrogen 6L, Creatinine 0.80, Sodium Level 143, Potassium Level 3.8, Chloride Level 105, Carbon Dioxide Level 32, Calcium Level 8.1L, Thyroid Stimulating Hormone (TSH) 224.000H, Free Thyroxine 0.43L 02/21/18 07:21: Bedside Glucose (Misc Panel) 77 CBC/BMP Laboratory Tests 02/21/18 06:14 Red Blood Count 4.29, Mean Corpuscular Volume 86.7, Mean Corpuscular Hemoglobin 28.9, Mean Corpuscular Hemoglobin Concent 33.3, Red Cell Distribution Width 14.9 H, Calcium Level 8.1 L FSBS Laboratory Tests Test 02/20/18 19:14 02/20/18 20:23 02/20/18 23:50 02/21/18 04:06 Range/Units Bedside Glucose (Misc Panel) 180 88 78 73 70-105 MG/DL Test 02/21/18 07:21 Range/Units Bedside Glucose (Misc Panel) 77 70-105 MG/DL Discharge Medications Scheduled Levothyroxine Sodium (Levo-T) 200 Mcg Tab, 400 MCG PO DAILY for hypothyroid Liothyronine Sodium (Liothyronine Sodium) 25 Mcg Tab, 1 TAB PO DAILY Pantoprazole Sodium (Pantoprazole Sodium) 40 Mg Tab, 40 MG PO DAILY Scheduled PRN Acetaminophen (Tylenol Extra Strength) 500 Mg Tab, 1,000 MG PO Q4H PRN for PAIN OR FEVER, (Reported) Miscellaneous Medications [Patient Comments] , (Reported) PATIENT STATES SHE HAS SWITCHED PHARMACIES SO SHE'S UNSURE WHEN SHE LAST TOOK ANY OF HER MEDICATIONS Allergies Coded Allergies: Dexamethasone (Verified Allergy, Severe, ANAPHYLAXIS, 02/19/18) PT HAD ADVERSE REACTION TO DECADRON DURING PREVIOUS HOSPITAL ADMISSION. PT STATES HER THROAT BECAN TO CLOSE, SHE BECAME HYPOTENSIVE AND HAD A HEART RATE IN THE 20'S AFTER DECADRON WAS ADMINISTERED. Grass (Verified Allergy, Unknown, 02/19/18) HAY FEVER (Verified Allergy, Unknown, 02/19/18) Pollen Extract (Verified Allergy, Unknown, 02/19/18) KATI NEWSOME MD Feb 21, 2018 17:28
[2018-02-22] MEDS ORDERED: INFLUENZA QUADRIVALENT PF VACCINE 0.5ML SYRINGE (90686) IM ONE (09:00)
[2018-02-22 11:43] LABS: TOTAL T3 57.7 NG/DL (60.0-181.0)
== END 2018-02-21 10:30 | disposition home or self-care (01) | DRG 424 ==
LOC: M ED 15:50 → M ED INP 22:30 → M PED 02-20 01:15
PROVIDERS: ADMIT Internal Medicine; ATTEND Internal Medicine
DX: E16.1 Other hypoglycemia (principal); F32.9 Major depressive disorder, single episode, unspecified; E28.2 Polycystic ovarian syndrome; F41.9 Anxiety disorder, unspecified; E89.0 Postprocedural hypothyroidism; Z85.850 Personal history of malignant neoplasm of thyroid; Z98.84 Bariatric surgery status; Z79.899 Other long term (current) drug therapy; Z88.8 Allergy status to other drugs, medicaments and biological substances

== ENCOUNTER → 2018-02-25 | Outpatient (REF) | payer OTHER ==
[~2018-02-25] MED LIST changes: +FREEMIS42 TOP; +LEVO-97 PO; +LIOT25TA2 PO; +PANT40TA3 PO; +PATIENT COMMENTS; +PHEN-239 PO; +SYNT25TA PO; +TOPI50TA9 PO
== END ==
LOC: M SFHCCLAY 16:10
PROVIDERS: ATTEND Nurse Practitioner Family
DX: E89.0 Postprocedural hypothyroidism (principal); Z98.84 Bariatric surgery status; E16.2 Hypoglycemia, unspecified

== ENCOUNTER → 2018-02-25 | Outpatient (CLI) | payer OTHER ==
[2018-02-25 18:55] LABS: BLOOD UREA NITROGEN 9 MG/DL (7-18); CALCIUM LEVEL 8.9 MG/DL (8.5-10.1); CARBON DIOXIDE LEVEL 26 MEQ/L (21-32); CHLORIDE LEVEL 105 MEQ/L (98-107); CREATININE FOR GFR 0.88 MG/DL (0.55-1.30); FREE T4 1.33 NG/DL (0.76-1.46); GLOMERULAR FILTRATION RATE > 60.0 (>60); GLUCOSE, FASTING 52 MG/DL (70-100); POTASSIUM SERUM 3.7 MEQ/L (3.5-5.1); SODIUM LEVEL 140 MEQ/L (136-145)
== END ==
LOC: M LAB 17:24
PROVIDERS: ATTEND Nurse Practitioner Family
DX: E89.0 Postprocedural hypothyroidism (principal); Z98.84 Bariatric surgery status; E16.2 Hypoglycemia, unspecified

== ENCOUNTER → 2018-03-26 | Outpatient (REF) | payer OTHER ==
[2018-03-26 14:45] LABS: INFLUENZA A AMPLIFICATION NEGATIVE (NEGATIVE); INFLUENZA B AMPLIFICATION NEGATIVE (NEGATIVE)
== END ==
LOC: M LAB REF 13:44
PROVIDERS: ATTEND Physician Assistant
DX: R68.89 Other general symptoms and signs (principal)

== ENCOUNTER → 2018-04-21 | Outpatient (CLI) | payer OTHER ==
[2018-04-21 18:42] LABS: BASO # 0.1 10^3/uL (0.0-0.2); BASO % 0.9 % (0.0-1.0); HEMATOCRIT 38.2 % (36.0-47.0); HEMOGLOBIN 12.3 g/dl (12.0-15.5); LYMPH # 3.2 10^3/uL (1.5-4.5); MEAN CORPUSCULAR HEMOGLOBIN 27.7 pg (27.0-33.0); MEAN CORPUSCULAR HGB CONC 32.2 g/dl (32.0-36.5); MONO # 0.9 10^3/uL (0.0-0.8); NEUTROPHILS # 4.2 10^3/uL (1.8-7.7); PLATELET COUNT, AUTOMATED 584 10^3/uL (150-450); RED BLOOD COUNT 4.44 10^6/uL (4.00-5.40); WHITE BLOOD COUNT 8.4 10^3/uL (4.0-10.0)
[2018-04-21 18:47] LABS: HEMATOCRIT 38.2 % (36.0-47.0)
[2018-04-21 19:13] LABS: ALBUMIN 3.7 GM/DL (3.2-5.2); ALT/SGPT 73 U/L (12-78); BILIRUBIN,TOTAL 0.2 MG/DL (0.2-1.0); BLOOD UREA NITROGEN 10 MG/DL (7-18); CALCIUM LEVEL 9.1 MG/DL (8.5-10.1); CARBON DIOXIDE LEVEL 27 MEQ/L (21-32); CHLORIDE LEVEL 105 MEQ/L (98-107); CREATININE FOR GFR 0.59 MG/DL (0.55-1.30); FERRITIN 14 NG/ML (8-252); GLOMERULAR FILTRATION RATE > 60.0 (>60); GLUCOSE, FASTING 68 MG/DL (70-100); IRON (FE) 27 UG/DL (50-170); MAGNESIUM LEVEL 2.2 MG/DL (1.8-2.4); PHOSPHORUS LEVEL 4.4 MG/DL (2.5-4.9); POTASSIUM SERUM 3.9 MEQ/L (3.5-5.1); SODIUM LEVEL 141 MEQ/L (136-145); TOTAL 25(OH) VITAMIN D 26.8 NG/ML (30.0-100.0); TOTAL IRON BINDING CAPACITY 453 UG/DL (250-450); TOTAL PROTEIN 7.5 GM/DL (6.4-8.2); VITAMIN B12 LEVEL 697 PG/ML (247-911)
[2018-04-21 19:25] LABS: HEMOGLOBIN A1c 5.4 %
== END ==
LOC: M LAB 18:15
PROVIDERS: ATTEND Physician Assistant
DX: K91.2 Postsurgical malabsorption, not elsewhere classified (principal); E55.9 Vitamin D deficiency, unspecified; Z98.84 Bariatric surgery status

== ENCOUNTER → 2018-05-10 | Outpatient (CLI) | payer OTHER ==
[~2018-05-10] MED LIST changes: +E-Z-GAS II EFFERVESCENT PACKET (SODIUM BICARB./CITRIC ACID/SIMETHICONE) As Ordered ONE; +E-Z-HD 98% w/w 340GM SUSP BTL As Ordered ONE; +E-Z-PAQUE 96% w/w SUSP 176GM BTL As Ordered ONE
--- NOTE | 2018-05-10 16:19 | REP ---
UPPER GI SINGLE CONTRAST The procedure was performed under the direct supervision of Dr. Devi. The images were reviewed with Dr. Devi. The senior net application developer film shows no organomegaly or pathological masses. The intestinal gas pattern is nonspecific. There is an IUD in place. Liquid barium was given in the erect and prone oblique positions. The oral and pharyngeal stages of deglutition are unremarkable. Esophageal transport is prompt and efficient and there is no esophagitis stricture mucosal ring or hiatal hernia. There is gastroesophageal reflux demonstrated to above the level of the ravinder. There are postsurgical changes of the stomach consistent with the patient's history of Juancho-en-Y gastric bypass. There is free flow of contrast through the anastomosis. There is no evidence of gastritis neoplasm or ulcer disease. The visualized portion of the proximal small bowel appears normal in course and caliber. Impression: There is gastroesophageal reflux demonstrated to above the level of the ravinder. Postsurgical changes consistent with the patient's history of gastric bypass. Otherwise, unremarkable single contrast upper GI examination. 1.9 minutes of fluoroscopy time was utilized for this procedure. Reviewed by MARLENE Rider 05/10/2018 03:34 P Electronically Signed by Zurdo Devi MD 05/10/2018 04:10 P
== END ==
LOC: M RAD 08:25
PROVIDERS: ATTEND Physician Assistant
DX: K21.9 Gastro-esophageal reflux disease without esophagitis (principal); Z98.84 Bariatric surgery status

== ENCOUNTER → 2018-05-24 | Outpatient (REF) | payer OTHER ==
[~2018-05-24] MED LIST changes: -/ONDA4TA PO; -/PANT40TA PO; -ACET50TA PO; -CVS20TAB PO; -E-Z-GAS II EFFERVESCENT PACKET (SODIUM BICARB./CITRIC ACID/SIMETHICONE) As Ordered ONE; -E-Z-HD 98% w/w 340GM SUSP BTL As Ordered ONE; -E-Z-PAQUE 96% w/w SUSP 176GM BTL As Ordered ONE; +HYDR-3715 PO; +MAPA500T17 PO; -MIRA255PW PO; -NORCOTAB PO; +OMEP20TA9 PO; +ONDA-1 PO; +POLY1POW4 PO; +PRED-351 PO; -PRED10TA PO
== END ==
LOC: M SFHCCLAY 11:05
PROVIDERS: ATTEND Nurse Practitioner Family
DX: J02.9 Acute pharyngitis, unspecified (principal)

== ENCOUNTER → 2018-09-28 | Outpatient (CLI) | payer OTHER ==
[~2018-09-28] MED LIST changes: -OMEP20CA3 PO; +OMEP20CA4 PO
[2018-09-28 17:04] LABS: FREE T4 1.56 NG/DL (0.76-1.46); THYROID STIMULATING HORMONE 0.031 uIU/ML (0.358-3.740)
[2018-09-28 17:06] LABS: TOTAL T3 127.4 NG/DL (60.0-181.0)
== END ==
LOC: M LAB 15:48
PROVIDERS: ATTEND Nurse Practitioner Family
DX: E89.0 Postprocedural hypothyroidism (principal)

== ENCOUNTER → 2018-12-09 | Outpatient (CLI) | payer OTHER ==
[~2018-12-09] MED LIST changes: -LIOT25TA2 PO; +LIOT25TA8 PO
== END ==
LOC: M OUTALCOH 07:48
PROVIDERS: ATTEND Psychiatry & Neurology Psychiatry
DX: Z53.9 Procedure and treatment not carried out, unspecified reason (principal)

== ENCOUNTER 2019-01-11 16:00 | Outpatient (RCR) | payer OTHER | END 2019-01-15 | LOC: M OUTALCOH 16:00 | PROVIDERS: ATTEND Psychiatry & Neurology Psychiatry | DX: F10.20 Alcohol dependence, uncomplicated (principal) ==

== ENCOUNTER 2019-02-10 16:00 | Outpatient (RCR) | payer OTHER ==
[~2019-02-10 16:00] MED LIST changes: +OMEP-172 PO; -OMEP20CA4 PO
== END 2019-02-15 ==
LOC: M OUTALCOH 16:00
PROVIDERS: ATTEND Psychiatry & Neurology Psychiatry
DX: F10.20 Alcohol dependence, uncomplicated (principal)

== ENCOUNTER 2019-03-16 16:00 | Outpatient (RCR) | payer OTHER ==
[~2019-03-16 16:00] MED LIST changes: -OMEP-172 PO; +OMEP1CAP73 PO
== END 2019-03-18 ==
LOC: M OUTALCOH 16:00
PROVIDERS: ATTEND Psychiatry & Neurology Psychiatry
DX: F10.20 Alcohol dependence, uncomplicated (principal)

== ENCOUNTER → 2019-04-02 | Outpatient (CLI) | payer OTHER ==
[2019-04-02 11:17] LABS: FREE T4 0.72 NG/DL (0.76-1.46); THYROID STIMULATING HORMONE 46.5 uIU/ML (0.358-3.740)
== END ==
LOC: M LAB 10:13
DX: E89.0 Postprocedural hypothyroidism (principal)

== ENCOUNTER 2019-04-06 16:00 | Outpatient (RCR) | payer OTHER | END 2019-04-16 | LOC: M OUTALCOH 16:00 | PROVIDERS: ATTEND Psychiatry & Neurology Addiction Medicine | DX: F10.20 Alcohol dependence, uncomplicated (principal) ==

== ENCOUNTER → 2019-05-17 | Outpatient (RCR) | payer OTHER | LOC: M OUTALCOH 04-19 15:44 | PROVIDERS: ATTEND Psychiatry & Neurology Addiction Medicine | DX: F10.20 Alcohol dependence, uncomplicated (principal) ==

== ENCOUNTER 2019-06-13 15:08 | Outpatient (RCR) | payer OTHER | END 2019-06-16 | LOC: M OUTALCOH 15:08 | PROVIDERS: ATTEND Psychiatry & Neurology Addiction Medicine | DX: F10.20 Alcohol dependence, uncomplicated (principal) ==

== ENCOUNTER 2019-07-13 11:00 | Outpatient (RCR) | payer OTHER | END 2019-07-17 | LOC: M OUTALCOH 11:00 | PROVIDERS: ATTEND Psychiatry & Neurology Addiction Medicine | DX: F10.20 Alcohol dependence, uncomplicated (principal) ==

== ENCOUNTER → 2019-07-15 | Outpatient (CLI) | payer OTHER ==
[2019-07-15 16:12] LABS: FREE T4 0.46 NG/DL (0.76-1.46)
== END ==
LOC: M LAB 14:43
PROVIDERS: ATTEND Physician Assistant
DX: E89.0 Postprocedural hypothyroidism (principal)

== ENCOUNTER → 2019-07-29 | Outpatient (CLI) | payer OTHER | LOC: M LAB 16:44 | PROVIDERS: ATTEND Psychiatry & Neurology Addiction Medicine | DX: F10.988 Alcohol use, unspecified with other alcohol-induced disorder (principal) ==

== ENCOUNTER → 2019-08-16 | Outpatient (CLI) | payer OTHER ==
[2019-08-16 16:07] LABS: FREE T4 2.96 NG/DL (0.76-1.46); THYROID STIMULATING HORMONE 0.116 uIU/ML (0.358-3.740)
== END ==
LOC: M LAB 15:03
PROVIDERS: ATTEND Physician Assistant
DX: E89.0 Postprocedural hypothyroidism (principal)

== ENCOUNTER → 2019-08-16 | Outpatient (RCR) | payer OTHER | LOC: M OUTALCOH 07-18 10:44 | PROVIDERS: ATTEND Psychiatry & Neurology Addiction Medicine | DX: F10.20 Alcohol dependence, uncomplicated (principal) ==

== ENCOUNTER 2019-09-13 11:00 | Outpatient (RCR) | payer OTHER ==
[~2019-09-13 11:00] MED LIST changes: +PANT40TA29 PO; -PANT40TA3 PO
== END 2019-09-16 ==
LOC: M OUTALCOH 11:00
PROVIDERS: ATTEND Psychiatry & Neurology Addiction Medicine
DX: F10.20 Alcohol dependence, uncomplicated (principal)

== ENCOUNTER 2019-09-20 15:35 | Emergency (ER) | payer OTHER ==
[2019-09-20] MEDS ORDERED: LIDOCAINE 2% MDV 20ML VIAL ONE (15:36)
[2019-09-20] MEDS ORDERED: ACETAMINOPHEN 325 MG TAB ONE (15:36)
[2019-09-20] MEDS ORDERED: LIDOCAINE W/EPINEPHRINE 1% 20ML VIAL ONE (15:36)
[2019-09-20] MEDS ORDERED: ACETAMINOPHEN 325 MG TAB As Ordered ONE (15:41)
[2019-09-20] MEDS ORDERED: LIDOCAINE 2% MDV 20ML VIAL As Ordered ONE (15:41)
[2019-09-20] MEDS ORDERED: LIDOCAINE W/EPINEPHRINE 1% 20ML VIAL As Ordered ONE (16:56)
[2019-10-18 16:07] LABS: BASO # 0.1 10^3/uL (0.0-0.2); BASO % 0.7 % (0.0-1.0); HEMATOCRIT 40.6 % (36.0-47.0); HEMOGLOBIN 13.1 g/dl (12.0-15.5); LYMPH # 1.2 10^3/uL (1.5-5.0); LYMPH % 14.3 % (24.0-44.0); MEAN CORPUSCULAR HEMOGLOBIN 29.7 pg (27.0-33.0); MEAN CORPUSCULAR HGB CONC 32.3 g/dl (32.0-36.5); MEAN CORPUSCULAR VOLUME 92.1 fl (80.0-96.0); MONO # 0.8 10^3/uL (0.0-0.8); MONO % 9.8 % (0.0-5.0); NEUTROPHILS # 6.2 10^3/uL (1.5-8.5); NEUTROPHILS % 74.8 % (36.0-66.0); PLATELET COUNT, AUTOMATED 518 10^3/uL (150-450); RED BLOOD COUNT 4.41 10^6/uL (4.00-5.40); WHITE BLOOD COUNT 8.2 10^3/uL (4.0-10.0)
[2019-10-27 15:00] LABS: BLOOD UREA NITROGEN 6 MG/DL (7-18); CALCIUM LEVEL 9.1 MG/DL (8.5-10.1); CARBON DIOXIDE LEVEL 32 MEQ/L (21-32); CHLORIDE LEVEL 103 MEQ/L (98-107); CK-MB VALUE MASS < 1.0 NG/ML (<3.6); CPK CREATINE PHOSPHOKINASE 113 U/L (26-192); GLOMERULAR FILTRATION RATE > 60.0 (>60); GLUCOSE, FASTING 95 MG/DL (70-100); MB/CK RELATIVE INDEX 0.88 (< OR =4); POTASSIUM SERUM 3.9 MEQ/L (3.5-5.1); SODIUM LEVEL 136 MEQ/L (136-145); THYROID STIMULATING HORMONE 0.081 uIU/ML (0.358-3.740); TROPONIN I < 0.02 NG/ML (< 0.10)
--- NOTE | 2019-11-03 14:56 | ECGEPIP ---
SINUS RHYTHM WITH SINUS ARRHYTHMIA MOD. IVCD PRWP POSSIBLE PRIOR INFERIOR INFARCT SEE SCANNED DOWNTIME REPORT MTDD
== END 2019-09-20 18:26 | disposition home or self-care (01) ==
LOC: M ED 15:35
DX: R55 Syncope and collapse (principal); S01.01XA Laceration without foreign body of scalp, initial encounter; W01.198A Fall on same level from slipping, tripping and stumbling with subsequent striking against other object, initial encounter; Y92.512 Supermarket, store or market as the place of occurrence of the external cause; Z98.84 Bariatric surgery status; E16.2 Hypoglycemia, unspecified; Z79.84 Long term (current) use of oral hypoglycemic drugs; Z79.899 Other long term (current) drug therapy

== ENCOUNTER 2019-10-04 08:20 | Day surgery (SDC) | payer OTHER ==
[2019-10-04] MEDS ORDERED: BUPIVACAINE HCL 0.25% 10ML VIAL As Ordered ONE (09:20)
[2019-10-04] MEDS ORDERED: BUPIVACAINE LIPOSOME/PF 1.3% 20ML VIAL (13.3MG/ML)(EXPAREL)(C9290 PER1MG) As Ordered ONE (09:21)
[2019-10-04] MEDS ORDERED: MIDAZOLAM INJ 2MG/2ML VIAL (J2250 PER 1MG) As Ordered ONE ×2 (09:55→10:36)
[2019-10-04] MEDS ORDERED: LIDOCAINE 2% 100MG/5ML SDV (FOR ANES.) As Ordered ONE (10:36)
[2019-10-04] MEDS ORDERED: propofoL 200 MG/20 ML VIAL As Ordered ONE ×2 (10:36→10:43)
[2019-10-04] MEDS ORDERED: ONDANSETRON 4MG/2ML VIAL As Ordered ONE (10:36)
[2019-10-04] MEDS ORDERED: fentaNYL 100 MCG/2 ML INJECTION (J3010) As Ordered ONE (10:36)
[2019-10-04] MEDS ORDERED: KETOROLAC 60MG 2ML VIAL As Ordered ONE (10:37)
[2019-10-04] MEDS ORDERED: ACETAMINOPHEN 1000MG 100ML IV BTL (OFIRMEV) (J0131 PER 10MG) As Ordered ONE (10:37)
[2019-10-11] MEDS ORDERED: dexameTHASONE 4 MG/ML 1ML VIAL (J1100 PER 1MG) As Ordered ONE (16:25)
[2019-10-11] MEDS ORDERED: ONDANSETRON 4MG/2ML VIAL As Ordered ONE (16:25)
[2019-10-11] MEDS ORDERED: LIDOCAINE 2% 100MG/5ML SDV (FOR ANES.) As Ordered ONE (16:25)
[2019-10-11] MEDS ORDERED: propofoL 200 MG/20 ML VIAL As Ordered ONE (16:25)
[2019-10-11] MEDS ORDERED: ROCURONIUM BROMIDE 50 MG/5 ML VIAL As Ordered ONE (16:25)
[2019-10-11] MEDS ORDERED: MIDAZOLAM INJ 2MG/2ML VIAL (J2250 PER 1MG) As Ordered ONE (16:26)
[2019-10-11] MEDS ORDERED: fentaNYL 100 MCG/2 ML INJECTION (J3010) As Ordered ONE (16:26)
[2019-10-11] MEDS ORDERED: LABETALOL 100MG/20ML VIAL As Ordered ONE (17:06)
--- NOTE | 2019-11-24 12:42 | RO ---
DATE OF OPERATION: 10/04/2019 PREOPERATIVE DIAGNOSIS: Pilonidal cyst. POSTOPERATIVE DIAGNOSIS: Pilonidal cyst. PROCEDURE PERFORMED: Pilonidal cystectomy. SURGEON: Jose Mason MD ANESTHESIA: Spinal. INDICATIONS FOR THE PROCEDURE: Patient is a pleasant, 34-year-old woman who had been seen in the office for occasional drainage from a small pore along the midline of the lower back just above the top of the gluteal cleft. Inspection showed three small pores or pits along this area and she was scheduled for excision of a pilonidal cyst. OPERATIVE PROCEDURE: Patient was brought to the operating room and a subarachnoid block was placed by anesthesia. She was rolled into a prone position on the operating table with her pressure points padded. The patients lower back and buttocks were prepped and draped in a sterile fashion. Inspection revealed three small pores or pits along the midline just above the top of the gluteal cleft. The largest was most inferior and then there were two closer together about 2 cm higher. There did not appear to be any acute inflammation at this time and there was no material that could be expressed. I outlined a skin ellipse that was approximately 3 cm in length x 2 cm in width using a skin marker. The skin was incised with a scalpel and the skin ellipse with the underlying subcutaneous tissue was excised using the electrocautery. The cyst did not appear to extend deeply into the subcutaneous tissues and so the wound was fairly shallow at the completion of the excision. The tissue was sent for permanent pathology. Hemostasis was insured with the cautery. A mixture of 20 mL of Exparel with 10 mL of 0.25% Marcaine was infiltrated widely around the operative site. The wound was filled with saline moistened gauze and covered with a dry gauze which was held in place with tape. The patient tolerated the procedure well without apparent complication. She was brought to the recovery room in stable condition. GUNNAR
== END 2019-10-04 15:21 | disposition home or self-care (01) ==
LOC: M SDC 08:20
PROVIDERS: ATTEND Surgery
DX: L05.91 Pilonidal cyst without abscess (principal); E03.9 Hypothyroidism, unspecified; Z88.8 Allergy status to other drugs, medicaments and biological substances; Z79.84 Long term (current) use of oral hypoglycemic drugs; Z79.899 Other long term (current) drug therapy
CPT/HCPCS: 11770; 88304; C9290; J0131; J1885; J2250; J2405; J3010

== ENCOUNTER 2019-10-13 15:30 | Outpatient (RCR) | payer OTHER | END 2019-10-17 | LOC: M OUTALCOH 15:30 | PROVIDERS: ATTEND Psychiatry & Neurology Addiction Medicine | DX: F10.20 Alcohol dependence, uncomplicated (principal) ==

== ENCOUNTER → 2019-11-04 | Outpatient (CLI) | payer OTHER ==
[2019-11-04 13:30] LABS: FREE T4 2.15 NG/DL (0.76-1.46); THYROID STIMULATING HORMONE 0.029 uIU/ML (0.358-3.740)
== END ==
LOC: M LAB 11:37
PROVIDERS: ATTEND Physician Assistant
DX: E89.0 Postprocedural hypothyroidism (principal)

== ENCOUNTER → 2020-02-13 | Outpatient (CLI) | payer OTHER ==
[2020-02-13 11:08] LABS: FREE T4 1.08 NG/DL (0.76-1.46); THYROID STIMULATING HORMONE 0.262 uIU/ML (0.358-3.740)
== END ==
LOC: M PLALAB 08:57
PROVIDERS: ATTEND Physician Assistant
DX: E89.0 Postprocedural hypothyroidism (principal)

== ENCOUNTER → 2020-05-07 | Outpatient (CLI) | payer OTHER | LOC: M WHC 08:49 | PROVIDERS: ATTEND Advanced Practice Midwife | DX: R10.2 Pelvic and perineal pain (principal) ==

== ENCOUNTER → 2020-05-08 | Outpatient (CLI) | payer OTHER ==
--- NOTE | 2020-05-08 12:59 | REP ---
INDICATION: N63.0 R BREAST NODULE; R BREAST NODULE. Right breast lump x1 year 5 to 6 o'clock position recently enlarging. COMPARISON: No comparison breast imaging. TECHNIQUE: A skin marker is affixed to the skin at the site of the palpable lump and routine images of the right breast are obtained. These are augmented by magnified focal spot compression and true mL images. 3D tomography is carried out. Targeted right breast sonography is performed. This mammogram was interpreted with the aid of an FDA-approved computer-aided detection system. FINDINGS: There is a minimal pattern of scattered fibroglandular elements in subareolar and upper outer quadrant regions. Small benign lymph nodes are seen in the upper outer quadrant. At the site of the palpable lump, there is a subdermal oval-shaped well-circumscribed lesion measuring 1.1 cm in greatest diameter adjacent to the areolar border inferiorly. Tomographic images show no additional abnormality. No microcalcification or architectural distortion is seen. No other mammographic finding. The Volpara volumetric breast density pattern is a.. Targeted ultrasound: Targeted right breast sonography demonstrates a 1.1 x 0.6 x 0.9 cm very superficial subdermal oval-shaped hypoechoic lesion with peripheral blood flow and a, a well-defined back wall, and enhanced through transmission. There is heterogeneous hypoechoic internal texture. No internal blood flow is seen. The overlying dermis appears thinner at the level of the lesion. The long axis is parallel to the skin. No overlying tract to the skin is seen IMPRESSION: BIRADS/ACR category 2 benign right breast mammographic and sonographic findings. Findings consistent with sebaceous cyst in the 5-6 o'clock position of the right breast. Clinical correlation and follow-up is advised. This patient's Tyrer-Cuzick lifetime breast cancer risk assessment score is 11.9%. The patient states she had a clinical breast exam in April of 2020. RECOMMENDATION: Repeat screening mammography recommended 1 year (for women over 40). Clinical follow-up regarding the palpable lump. The patient letter being requested is M1. <Electronically signed by David Devi > 05/08/20 [id number]
== END ==
LOC: M WHC 07:53
PROVIDERS: ATTEND Nurse Practitioner Adult Health
DX: N63.10 Unspecified lump in the right breast, unspecified quadrant (principal)
CPT/HCPCS: 76642; 77065; G0279

== ENCOUNTER → 2020-05-08 | Outpatient (CLI) | payer OTHER ==
--- NOTE | 2020-05-08 09:09 | REP ---
INDICATION: R10.2 PELVIC PAIN. COMPARISON: None. TECHNIQUE: Transabdominal, endovaginal and color Doppler ultrasound evaluation. FINDINGS: The uterus is anteverted and normal size measuring 7.7 x 3.3 x 4.2 cm. The endometrium is not thickened measuring up to 5 mm. There is an IUD satisfactory position within the endometrial canal. Right ovary: The right ovary is normal size measuring 2.2 x 2.4 x 2.3 cm. There is no right ovarian dominant mass or cyst. There is vascular flow in the right ovary with color Doppler evaluation. Left ovary: The left ovary is normal size measuring 1.7 x 1.8 x 2.3 cm. There is no dominant left ovarian mass or cyst. There is vascular flow in the left ovary with color Doppler assessment. Nabothian cysts are incidentally identified within the cervix. No free fluid is identified. IMPRESSION: There is an IUD in satisfactory position within the endometrial canal. Otherwise, essentially negative pelvic ultrasound. <Electronically signed by Soy Murrieta > 05/08/20 [id number]
== END ==
LOC: M WHC 07:25
PROVIDERS: ATTEND Advanced Practice Midwife
DX: R10.2 Pelvic and perineal pain (principal)

== ENCOUNTER → 2020-05-21 | Outpatient (CLI) | payer OTHER ==
[~2020-05-21] MED LIST changes: +LEVO112T2 PO; +PRAZ2CAP
== END ==
LOC: M LABSMTC 11:48
PROVIDERS: ATTEND Anesthesiology
DX: Z20.822 Contact with and (suspected) exposure to COVID-19 (principal)

== ENCOUNTER 2020-05-25 11:24 | Day surgery (SDC) | payer OTHER ==
[~2020-05-25] VITALS: Ht 167.6 cm; Wt 117.0 kg
[~2020-05-25 11:24] MED LIST changes: +NS 1,000 ML IV ONE
[2020-05-25] MEDS ORDERED: fentaNYL 100 MCG/2 ML INJECTION (J3010) As Ordered ONE (12:06)
[2020-05-25] MEDS ORDERED: propofoL 200 MG/20 ML VIAL As Ordered ONE (12:07)
[2020-05-25] MEDS ORDERED: LIDOCAINE 2% 100MG/5ML SDV (FOR ANES.) As Ordered ONE (12:07)
[2020-05-25] MEDS ORDERED: ONDANSETRON 4MG/2ML VIAL As Ordered ONE (13:04)
[2020-05-25 13:45] VITALS: BP 145/88
--- NOTE | 2020-05-25 13:46 | ROOR ---
Patient Name: Sarah Saleem Procedure Date: 05/25/2020 12:59 PM Date of : 1985 Age: 34 Room: [facility] Gender: Female Note Status: Finalized Procedure: Upper GI endoscopy Indications: Nausea with vomiting, Persistent vomiting of unknown cause Providers: Wes Baez MD Referring MD: Kelly Armendariz NP Requesting Provider: Medicines: Monitored Anesthesia Care Complications: No immediate complications. Procedure: Pre-Anesthesia Assessment: - Prior to the procedure, a History and Physical was performed, and patient medications and allergies were reviewed. The patient is competent. The risks and benefits of the procedure and the sedation options and risks were discussed with the patient. All questions were answered and informed consent was obtained. Patient identification and proposed procedure were verified by the physician, the nurse and the anesthesiologist in the procedure room. Mental Status Examination: alert and oriented. Airway Examination: normal oropharyngeal airway and neck mobility. Respiratory Examination: clear to auscultation. CV Examination: normal. Prophylactic Antibiotics: The patient does not require prophylactic antibiotics. Prior Anticoagulants: The patient has taken no previous anticoagulant or antiplatelet agents. ASA Grade Assessment: II - A patient with mild systemic disease. After reviewing the risks and benefits, the patient was deemed in satisfactory condition to undergo the procedure. The anesthesia plan was to use monitored anesthesia care (MAC). Immediately prior to administration of medications, the patient was re-assessed for adequacy to receive sedatives. The heart rate, respiratory rate, oxygen saturations, blood pressure, adequacy of pulmonary ventilation, and response to care were monitored throughout the procedure. The physical status of the patient was re-assessed after the procedure. The Endoscope was introduced through the mouth, and advanced to the second part of duodenum. The upper GI endoscopy was accomplished without difficulty. The patient tolerated the procedure well. Findings: No gross lesions were noted in the entire esophagus. Evidence of a possible fundoplication was found at the gastroesophageal junction. The wrap appeared tight. This was traversed. 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 The gastrojejunal anastomosis was characterized by healthy appearing mucosa. This was traversed. The njgal-lf-mkwhqmc limb was characterized by healthy appearing mucosa. The jejunojejunal anastomosis was characterized by healthy appearing mucosa. The qndkfyms-ej-spnlqug limb was not examined as it could not be found. Biopsies were taken with a cold forceps for histology. Verification of patient identification for the specimen was done by the physician and nurse using the patient's name, date and medical record number. Estimated blood loss was minimal. The examined jejunum was normal. Impression: - No gross lesions in esophagus. - A possible fundoplication was found. The wrap appears tight. - Juancho-en-Y gastrojejunostomy with gastrojejunal anastomosis characterized by healthy appearing mucosa. Biopsied. - Normal examined jejunum. Recommendation: - Patient has a contact number available for emergencies. The signs and symptoms of potential delayed complications were discussed with the patient. Return to normal activities tomorrow. Written discharge instructions were provided to the patient. - Post gastric bypass diet (small frequent meals and avoid fatty/ fried foods). - Gastroparesis diet. - Continue present medications. - Await pathology results. - Follow an antireflux regimen. - Telephone GI clinic for pathology results in 2 weeks. - Return to primary care physician. Procedure Code(s): --- Professional --- 24777, Esophagogastroduodenoscopy, flexible, transoral; with biopsy, single or multiple Diagnosis Code(s): --- Professional --- Z98.890, Other specified postprocedural states Z98.0, Intestinal bypass and anastomosis status R11.2, Nausea with vomiting, unspecified R11.15, Cyclical vomiting syndrome unrelated to migraine CPT copyright 2019 [employer]. All rights reserved. The codes documented in this report are preliminary and upon industrial engineering technician review may be revised to meet current compliance requirements. Wes Baze MD Wes Baez MD 05/25/2020 1:46:04 PM Electronically signed by Wes Baez MD Number of Addenda: 0 Note Initiated On: 05/25/2020 12:59 PM Estimated Blood Loss: Estimated blood loss was minimal.
== END 2020-05-25 13:55 | disposition home or self-care (01) ==
LOC: M OPP 11:24
PROVIDERS: ATTEND Internal Medicine Gastroenterology
DX: R11.2 Nausea with vomiting, unspecified (principal); R11.15 Cyclical vomiting syndrome unrelated to migraine; R10.13 Epigastric pain; D13.1 Benign neoplasm of stomach; Z98.0 Intestinal bypass and anastomosis status; E03.9 Hypothyroidism, unspecified; F41.9 Anxiety disorder, unspecified; F32.9 Major depressive disorder, single episode, unspecified; E28.2 Polycystic ovarian syndrome; G47.30 Sleep apnea, unspecified; E16.2 Hypoglycemia, unspecified; Z98.84 Bariatric surgery status; Z88.8 Allergy status to other drugs, medicaments and biological substances; Z79.899 Other long term (current) drug therapy; Z85.850 Personal history of malignant neoplasm of thyroid; Z80.0 Family history of malignant neoplasm of digestive organs; Z80.41 Family history of malignant neoplasm of ovary
CPT/HCPCS: 43239; 88305; J2405; J3010

== ENCOUNTER → 2020-05-30 | Outpatient (CLI) | payer OTHER ==
[~2020-05-30] MED LIST changes: -NS 1,000 ML IV ONE
[2020-05-30 14:49] LABS: FREE T4 0.55 NG/DL (0.76-1.46); THYROID STIMULATING HORMONE 68.5 uIU/ML (0.358-3.740)
== END ==
LOC: M PLALAB 09:00
PROVIDERS: ATTEND Physician Assistant
DX: E89.0 Postprocedural hypothyroidism (principal)

== ENCOUNTER → 2020-06-04 | Outpatient (CLI) | payer OTHER ==
[~2020-06-04] MED LIST changes: +E-Z-GAS II EFFERVESCENT PACKET (SODIUM BICARB./CITRIC ACID/SIMETHICONE) As Ordered ONE; +E-Z-HD 98% w/w 340GM SUSP BTL As Ordered ONE; +E-Z-PAQUE 96% w/w SUSP 176GM BTL As Ordered ONE
--- NOTE | 2020-06-04 07:50 | REP ---
INDICATION: NAUSEA AND VOMITING COMPARISON: None. TECHNIQUE: Real time gallegos scale ultrasound examination using curved array transducer. FINDINGS: Liver is mildly enlarged at 22 cm in craniocaudal length with mild coarsened echotexture suggesting fatty infiltration and/or hepatocellular disease. No focal hepatic lesion identified. Pancreas is incompletely evaluated due to interposed bowel gas but visualized portions appear grossly normal. Gallbladder demonstrates gallstones and sludge without wall thickening or pericholecystic fluid. The common bile duct is minimally dilated to 8 mm without obvious visible obstructing calculus. The right kidney is normal in reniform shape without hydronephrosis and measures 11.9 x 6.9 x 4.4 cm. Visualized abdominal aorta appears normal. No ascites. IMPRESSION: 1. Mild hepatomegaly and hepatocellular disease/hepatosteatosis. 2. Cholelithiasis. Common bile duct is minimally dilated to 8 mm without obvious obstructing calculus identified. <Electronically signed by Edison Curtis > 06/04/20 0746
--- NOTE | 2020-06-05 06:54 | REP ---
INDICATION: NAUSEA AND VOMITING- U/S FIRST. COMPARISON: None TECHNIQUE: This procedure was performed by Jenifer Rodriguez [facility], under the direct supervision of Dr. Devi. Images were reviewed with Dr. Devi prior to dictation. Liquid barium and gas producing crystals were given in the erect position, as well as liquid barium in the prone oblique position in order to perform a double contrast upper GI examination. Additionally liquid barium was given at the end of the examination in order to perform a small-bowel follow-through. FINDINGS: The configuration engineer film shows no organomegaly or pathological masses. The intestinal gas pattern is unremarkable. There is a IUD in the pelvis. The oral and pharyngeal stages of deglutition were unremarkable. Esophageal transport is prompt and efficient and there is no evidence of esophagitis, stricture, or mucosal ring. There is no evidence of a hiatal hernia. There was no gastroesophageal reflux noted . The stomach [place] are normally outlined. The rugal folds are smooth and regular. There is no gastritis, neoplasm, or ulcerative disease. The duodenal stock[place] are normally outlined. The mucosal folds are smooth and regular. There is no duodenitis, peptic ulcer disease or neoplasm. The visualized portion of the proximal small bowel appears normal in course and caliber. The barium column was followed through the small bowel to the level of the terminal ileum. Small bowel transit time is approximately 255 minutes. During fluoroscopy gentle palpation shows all loops are freely movable and pliable. There is no fixed angulated loops. The small bowel mucosal pattern is normal in course and caliber. There is no transition to suggest a partial small bowel obstruction. Spot filming of the terminal ileum shows it to be unremarkable. IMPRESSION: Delayed small bowel transit time of approximately 255 minutes, otherwise unremarkable upper GI with small-bowel follow-through. 0.3 minutes of fluoroscopy time was utilized for this procedure. Some fluoroscopic images are performed with last image hold technology. These images require no additional radiation. <Electronically signed by Jenifer Rodriguez > 06/04/20 [id number] <Electronically signed by David Devi > 06/05/20 [id number]
== END ==
LOC: M RAD 06:46
PROVIDERS: ATTEND Internal Medicine Gastroenterology
DX: R16.0 Hepatomegaly, not elsewhere classified (principal); K80.20 Calculus of gallbladder without cholecystitis without obstruction

== ENCOUNTER 2020-07-05 02:43 | Emergency (ER) | payer OTHER ==
[~2020-07-05] VITALS: Ht 167.6 cm; Wt 113.5 kg
[~2020-07-05 02:43] MED LIST changes: -E-Z-GAS II EFFERVESCENT PACKET (SODIUM BICARB./CITRIC ACID/SIMETHICONE) As Ordered ONE; -E-Z-HD 98% w/w 340GM SUSP BTL As Ordered ONE; -E-Z-PAQUE 96% w/w SUSP 176GM BTL As Ordered ONE; +OMEP20TA2 PO; -OMEP20TA9 PO
[2020-07-05 06:14] LABS: BASO % 0.6 % (0.0-1.0); EOS # 0.1 10^3/uL (0.0-0.5); EOS % 0.9 % (0.0-3.0); HEMATOCRIT 38.6 % (36.0-47.0); LYMPH % 14.8 % (24.0-44.0); MEAN CORPUSCULAR HEMOGLOBIN 31.5 pg (27.0-33.0); MEAN CORPUSCULAR HGB CONC 33.7 g/dl (32.0-36.5); MEAN CORPUSCULAR VOLUME 93.5 fl (80.0-96.0); MONO # 0.6 10^3/uL (0.0-0.8); MONO % 8.8 % (2.0-8.0); NEUTROPHILS # 4.9 10^3/uL (1.5-8.5); NEUTROPHILS % 74.7 % (36.0-66.0); PLATELET COUNT, AUTOMATED 468 10^3/uL (150-450); RED BLOOD COUNT 4.13 10^6/uL (4.00-5.40); WHITE BLOOD COUNT 6.5 10^3/uL (4.0-10.0)
[2020-07-05 06:23] LABS: ALBUMIN 3.5 GM/DL (3.2-5.2); BILIRUBIN,DIRECT 1.8 MG/DL (0.0-0.2); BILIRUBIN,TOTAL 2.6 MG/DL (0.2-1.0); TOTAL PROTEIN 7.4 GM/DL (6.4-8.2)
[2020-07-05] MEDS ORDERED: NS 1,000 ML IV ONE (06:30)
[2020-07-05] MEDS ORDERED: METOCLOPRAMIDE INJ 10MG/2ML VIAL (J2765 PER 1) IV ONE (06:30)
[2020-07-05] MEDS ORDERED: GASTROGRAFIN SOLUTION 30ML PO SCH (06:50)
[2020-07-05 07:09] LABS: THYROID STIMULATING HORMONE 9.99 uIU/ML (0.358-3.740)
--- NOTE | 2020-07-05 08:06 | REPVR ---
PROCEDURE INFORMATION: Exam: US Abdomen, Limited; Right Upper Quadrant Exam date and time: 07/05/2020 7:25 AM Age: 35 years old Clinical indication: Abdominal pain; Additional info: Upper abd pain, elevated lft's TECHNIQUE: Imaging protocol: US abdomen. Real time ultrasound with image documentation. Limited exam focused on the right upper quadrant. COMPARISON: Abdomen, limited US 06/04/2020 6:58 AM FINDINGS: Liver: The liver is again large and increased in echotexture, suggesting fatty infiltration. There is no demonstrated mass or intrahepatic biliary ductal dilatation, evaluation for which is somewhat limited due to the increased echotexture. Gallbladder: The gallbladder again contains sludge and stones. It appears distended, measuring up to 11.5 cm, and its wall is thickened up to 8 mm. There is no significant pericholecystic fluid. Sonographic Peña sign is reportedly positive. Common bile duct: The common bile duct appears large for a patient of this age, measuring 7.4 mm. Pancreas: The pancreas is obscured by overlying bowel gas. Right kidney: The right kidney measures 12.0 x 5.2 x 6.9 cm. Normal appearing echotexture. There is no hydronephrosis or demonstrated renal stone, cyst or mass. IMPRESSION: 1. Gallbladder sludge and stones with apparent distension, mild wall thickening and reportedly positive sonographic Peña sign, suspicious for cholecystitis. 2. Mild dilatation of the common bile duct at 7.4 mm. Obstructing stone or lesion is not excluded. Suggest dedicated evaluation. 3. Large and fatty liver, as on 06/04/20. Electronically signed by: Demetris Vela On 07/05/2020 08:06:21 AM
[2020-07-05] MEDS ORDERED: ALPR0.5T3 (08:54)
--- NOTE | 2020-07-05 08:58 | REP ---
INDICATION: abd pain, vomiting r/o obstruction and free air. COMPARISON: 05/26/2012 the latest prior FINDINGS: Supine and upright views of the abdomen show the intestinal gas pattern to be nonspecific. Gas and stool is seen throughout the colon within the rectosigmoid region. The organ silhouettes insofar as delineated appear unremarkable. No abdominal calcific densities are seen within the abdomen or pelvis. Note is again made of surgical clips in the left upper quadrant and a T-shaped radiodensity in the pelvis consistent with an IUD. The accompanying single frontal view of the chest shows no free subdiaphragmatic air, cardiomegaly, infiltrates or effusions. IMPRESSION: Nonspecific intestinal gas pattern. <Electronically signed by Denys Collado > 07/05/20 [id number]
[2020-07-05] MEDS ORDERED: MORPHINE 4 MG/ML 1ML VIAL/SYRINGE (J2270) IV ONE (09:00)
[2020-07-05] MEDS ORDERED: ONDANSETRON 4MG/2ML VIAL IV ONE (09:20)
[2020-07-05 10:11] VITALS: BP 161/79
== END 2020-07-05 10:14 | disposition short-term general hospital (02) ==
LOC: M ED 02:43
DX: K80.00 Calculus of gallbladder with acute cholecystitis without obstruction (principal); K76.0 Fatty (change of) liver, not elsewhere classified; Z98.84 Bariatric surgery status
CPT/HCPCS: 74021; 76705; 80047; 80076; 83690; 84443; 84702; 85025; 93041; 96361; 96374; 96375; 99285; J2270; J2405; J2765

== ENCOUNTER → 2020-07-27 | Outpatient (CLI) | payer OTHER ==
[~2020-07-27] MED LIST changes: +ALPR0.5T3
[2020-07-27 16:59] LABS: BASO # 0.1 10^3/uL (0.0-0.2); BASO % 0.4 % (0.0-1.0); EOS # 0.3 10^3/uL (0.0-0.5); EOS % 2.6 % (0.0-3.0); HEMOGLOBIN 12.5 g/dl (12.0-15.5); LYMPH # 2.1 10^3/uL (1.5-5.0); LYMPH % 18.9 % (24.0-44.0); MEAN CORPUSCULAR HEMOGLOBIN 31.9 pg (27.0-33.0); MEAN CORPUSCULAR HGB CONC 32.9 g/dl (32.0-36.5); MEAN CORPUSCULAR VOLUME 96.9 fl (80.0-96.0); MONO # 0.9 10^3/uL (0.0-0.8); MONO % 7.6 % (2.0-8.0); NEUTROPHILS # 7.8 10^3/uL (1.5-8.5); NEUTROPHILS % 70.2 % (36.0-66.0); PLATELET COUNT, AUTOMATED 424 10^3/uL (150-450); RED BLOOD COUNT 3.92 10^6/uL (4.00-5.40); WHITE BLOOD COUNT 11.1 10^3/uL (4.0-10.0)
[2020-07-27 17:21] LABS: ALBUMIN 3.3 GM/DL (3.2-5.2); ALT/SGPT 95 U/L (12-78); BILIRUBIN,TOTAL 0.7 MG/DL (0.2-1.0); BLOOD UREA NITROGEN 7 MG/DL (7-18); CALCIUM LEVEL 9.4 MG/DL (8.5-10.1); CARBON DIOXIDE LEVEL 33 MEQ/L (21-32); CHLORIDE LEVEL 100 MEQ/L (98-107); CREATININE FOR GFR 0.57 MG/DL (0.55-1.30); GLOMERULAR FILTRATION RATE > 60.0 (>60); GLUCOSE, FASTING 111 MG/DL (70-100); POTASSIUM SERUM 3.5 MEQ/L (3.5-5.1); PREALBUMIN 18.4 MG/DL (20.0-40.0); SODIUM LEVEL 137 MEQ/L (136-145); TOTAL PROTEIN 7.2 GM/DL (6.4-8.2)
== END ==
LOC: M LAB 16:20
PROVIDERS: ATTEND Physician Assistant
DX: Z98.84 Bariatric surgery status (principal)

== ENCOUNTER → 2020-08-16 | Outpatient (CLI) | payer OTHER ==
[2020-08-16 17:56] LABS: BASO # 0.1 10^3/uL (0.0-0.2); BASO % 0.7 % (0.0-1.0); EOS # 0.1 10^3/uL (0.0-0.5); EOS % 0.9 % (0.0-3.0); HEMATOCRIT 41.1 % (36.0-47.0); HEMOGLOBIN 13.6 g/dl (12.0-15.5); LYMPH # 2.1 10^3/uL (1.5-5.0); LYMPH % 22.7 % (24.0-44.0); MEAN CORPUSCULAR HEMOGLOBIN 32.2 pg (27.0-33.0); MEAN CORPUSCULAR HGB CONC 33.1 g/dl (32.0-36.5); MEAN CORPUSCULAR VOLUME 97.4 fl (80.0-96.0); MONO # 0.7 10^3/uL (0.0-0.8); MONO % 7.1 % (2.0-8.0); NEUTROPHILS # 6.4 10^3/uL (1.5-8.5); NEUTROPHILS % 68.4 % (36.0-66.0); PLATELET COUNT, AUTOMATED 468 10^3/uL (150-450); RED BLOOD COUNT 4.22 10^6/uL (4.00-5.40); WHITE BLOOD COUNT 9.4 10^3/uL (4.0-10.0)
[2020-08-16 18:11] LABS: HEMOGLOBIN A1c 5.1 %
[2020-08-16 18:32] LABS: ALBUMIN 3.7 GM/DL (3.2-5.2); ALT/SGPT 89 U/L (12-78); BILIRUBIN,TOTAL 0.8 MG/DL (0.2-1.0); BLOOD UREA NITROGEN 3 MG/DL (7-18); CALCIUM LEVEL 9.6 MG/DL (8.5-10.1); CARBON DIOXIDE LEVEL 31 MEQ/L (21-32); CHLORIDE LEVEL 97 MEQ/L (98-107); CREATININE FOR GFR 0.71 MG/DL (0.55-1.30); GLOMERULAR FILTRATION RATE > 60.0 (>60); GLUCOSE, FASTING 101 MG/DL (70-100); MAGNESIUM LEVEL 1.9 MG/DL (1.8-2.4); PHOSPHORUS LEVEL 3.5 MG/DL (2.5-4.9); POTASSIUM SERUM 3.4 MEQ/L (3.5-5.1); SODIUM LEVEL 134 MEQ/L (136-145); TOTAL PROTEIN 7.6 GM/DL (6.4-8.2)
== END ==
LOC: M LAB 16:23
PROVIDERS: ATTEND Physician Assistant Surgical
DX: K91.2 Postsurgical malabsorption, not elsewhere classified (principal); E55.9 Vitamin D deficiency, unspecified; R11.2 Nausea with vomiting, unspecified; Z86.39 Personal history of other endocrine, nutritional and metabolic disease; Z98.84 Bariatric surgery status

== ENCOUNTER → 2020-08-24 | Outpatient (CLI) | payer OTHER | LOC: M LABSMTC 11:35 | PROVIDERS: ATTEND Surgery | DX: Z01.812 Encounter for preprocedural laboratory examination (principal); Z11.52 Encounter for screening for COVID-19 ==

== ENCOUNTER → 2020-09-05 | Outpatient (CLI) | payer OTHER ==
[2020-09-05 11:21] LABS: BASO # 0.1 10^3/uL (0.0-0.2); BASO % 0.9 % (0.0-1.0); EOS # 0.2 10^3/uL (0.0-0.5); EOS % 2.3 % (0.0-3.0); HEMATOCRIT 37.1 % (36.0-47.0); HEMOGLOBIN 12.4 g/dl (12.0-15.5); LYMPH # 1.5 10^3/uL (1.5-5.0); LYMPH % 22.2 % (24.0-44.0); MEAN CORPUSCULAR HEMOGLOBIN 32.5 pg (27.0-33.0); MEAN CORPUSCULAR HGB CONC 33.4 g/dl (32.0-36.5); MEAN CORPUSCULAR VOLUME 97.1 fl (80.0-96.0); MONO # 0.5 10^3/uL (0.0-0.8); MONO % 7.5 % (2.0-8.0); NEUTROPHILS # 4.6 10^3/uL (1.5-8.5); NEUTROPHILS % 66.5 % (36.0-66.0); PLATELET COUNT, AUTOMATED 431 10^3/uL (150-450); RED BLOOD COUNT 3.82 10^6/uL (4.00-5.40); WHITE BLOOD COUNT 6.9 10^3/uL (4.0-10.0)
[2020-09-05 12:04] LABS: ALBUMIN 3.2 GM/DL (3.2-5.2); ALT/SGPT 109 U/L (12-78); AMYLASE 52 U/L (25-115); BILIRUBIN,DIRECT 0.3 MG/DL (0.0-0.2); BILIRUBIN,TOTAL 0.7 MG/DL (0.2-1.0); BLOOD UREA NITROGEN 3 MG/DL (7-18); CALCIUM LEVEL 8.5 MG/DL (8.5-10.1); CARBON DIOXIDE LEVEL 33 MEQ/L (21-32); CHLORIDE LEVEL 103 MEQ/L (98-107); CREATININE FOR GFR 0.49 MG/DL (0.55-1.30); GLOMERULAR FILTRATION RATE > 60.0 (>60); GLUCOSE, FASTING 92 MG/DL (70-100); LIPASE 114 U/L (73-393); SODIUM LEVEL 141 MEQ/L (136-145); TOTAL PROTEIN 6.8 GM/DL (6.4-8.2)
[2020-09-06 12:17] LABS: TISSUE TRANSGLUTAMINASE IgA <2 U/mL (0-3); TISSUE TRANSGLUTAMINASE IgG <2 U/mL (0-5)
== END ==
LOC: M PLALAB 08:18
PROVIDERS: ATTEND Nurse Practitioner Family
DX: R74.01 Elevation of levels of liver transaminase levels (principal)

== ENCOUNTER → 2020-09-10 | Outpatient (CLI) | payer OTHER | LOC: M PLALAB 08:08 | PROVIDERS: ATTEND Physician Assistant Surgical | DX: K91.89 Other postprocedural complications and disorders of digestive system (principal); K52.9 Noninfective gastroenteritis and colitis, unspecified; Z98.84 Bariatric surgery status ==

== ENCOUNTER → 2020-09-10 | Outpatient (CLI) | payer OTHER ==
[2020-09-10 11:41] LABS: FREE T4 1.45 NG/DL (0.76-1.46)
== END ==
LOC: M PLALAB 08:11
PROVIDERS: ATTEND Physician Assistant
DX: E89.0 Postprocedural hypothyroidism (principal)

== ENCOUNTER → 2020-10-09 | Outpatient (REF) | payer OTHER | LOC: M LAB REF 19:05 | PROVIDERS: ATTEND Nurse Practitioner Family | DX: N39.0 Urinary tract infection, site not specified (principal) ==

== ENCOUNTER → 2020-10-17 | Outpatient (REF) | payer OTHER ==
[~2020-10-17] MED LIST changes: +BENZ200C70; +FOLI1TAB11; +FURO80TA2; +SERT50TA29; +SPIR100T3
[2020-10-17 17:28] LABS: ALBUMIN 2.5 GM/DL (3.2-5.2); ALT/SGPT 97 U/L (12-78); AMYLASE 37 U/L (25-115); BILIRUBIN,TOTAL 2.9 MG/DL (0.2-1.0); BLOOD UREA NITROGEN 1 MG/DL (7-18); CALCIUM LEVEL 8.8 MG/DL (8.5-10.1); CARBON DIOXIDE LEVEL 30 MEQ/L (21-32); CHLORIDE LEVEL 103 MEQ/L (98-107); GLOMERULAR FILTRATION RATE > 60.0 (>60); GLUCOSE, FASTING 84 MG/DL (70-100); LIPASE 67 U/L (73-393); POTASSIUM SERUM 3.9 MEQ/L (3.5-5.1); SODIUM LEVEL 140 MEQ/L (136-145); TOTAL PROTEIN 6.7 GM/DL (6.4-8.2)
== END ==
LOC: M LABWUC 15:45
PROVIDERS: ATTEND Nurse Practitioner Family
DX: R74.01 Elevation of levels of liver transaminase levels (principal)

== ENCOUNTER → 2020-10-19 | Outpatient (CLI) | payer OTHER ==
[~2020-10-19] MED LIST changes: -BENZ200C70; -FOLI1TAB11; -FURO80TA2; -SERT50TA29; -SPIR100T3
--- NOTE | 2020-10-19 11:40 | REP ---
INDICATION: RUQ PAIN, ABN LFTS. COMPARISON: Ultrasound 10/19/2020. TECHNIQUE: Multiple heavily T2 weighted sequences are obtained in the axial and coronal planes. 3D MIP reconstruction images are performed. FINDINGS: There is no intrahepatic or extrahepatic biliary dilatation. There is no gross biliary stricture and no focal dilatation. Common bile duct has a maximum diameter of approximately 5 mm. Pancreatic duct is normal in caliber. Gallbladder is mildly distended with no wall thickening or edema. No internal filling defect or gallstone is seen. There is no evidence of choledocholithiasis. The liver is markedly enlarged with a length of approximately 30 cm. There is moderate periportal edema. There is no fluid collection. The spleen as been removed. The adrenals, pancreas and kidneys are grossly unremarkable. I see no adenopathy or free fluid in the abdomen. IMPRESSION: Status post cholecystectomy. Moderate periportal edema. No fluid collection. No biliary dilatation or evidence of choledocholithiasis. Marked hepatomegaly, the length of the liver is approximately 30 cm. <Electronically signed by Soy Duval > 10/19/20 [id number]
== END ==
LOC: M PLARAD 10:43
PROVIDERS: ATTEND Nurse Practitioner Family
DX: R10.11 Right upper quadrant pain (principal); R94.5 Abnormal results of liver function studies

== ENCOUNTER → 2020-10-31 | Outpatient (CLI) | payer OTHER ==
[2020-10-31 17:41] LABS: BASO # 0.2 10^3/uL (0.0-0.2); BASO % 0.7 % (0.0-1.0); EOS # 0.1 10^3/uL (0.0-0.5); EOS % 0.5 % (0.0-3.0); HEMATOCRIT 32.8 % (36.0-47.0); HEMOGLOBIN 11.4 g/dl (12.0-15.5); LYMPH # 3.2 10^3/uL (1.5-5.0); LYMPH % 13.4 % (24.0-44.0); MEAN CORPUSCULAR HEMOGLOBIN 34.2 pg (27.0-33.0); MEAN CORPUSCULAR HGB CONC 34.8 g/dl (32.0-36.5); MEAN CORPUSCULAR VOLUME 98.5 fl (80.0-96.0); MONO # 1.4 10^3/uL (0.0-0.8); MONO % 5.7 % (2.0-8.0); NEUTROPHILS # 18.9 10^3/uL (1.5-8.5); NEUTROPHILS % 78.9 % (36.0-66.0); PLATELET COUNT, AUTOMATED 555 10^3/uL (150-450); RED BLOOD COUNT 3.33 10^6/uL (4.00-5.40); WHITE BLOOD COUNT 23.9 10^3/uL (4.0-10.0)
[2020-10-31 18:10] LABS: ALBUMIN 2.1 GM/DL (3.2-5.2); ALT/SGPT 50 U/L (12-78); BLOOD UREA NITROGEN 2 MG/DL (7-18); CALCIUM LEVEL 8.5 MG/DL (8.5-10.1); CARBON DIOXIDE LEVEL 30 MEQ/L (21-32); CHLORIDE LEVEL 102 MEQ/L (98-107); CREATININE FOR GFR 0.53 MG/DL (0.55-1.30); GLOMERULAR FILTRATION RATE > 60.0 (>60); GLUCOSE, FASTING 88 MG/DL (70-100); POTASSIUM SERUM 3.9 MEQ/L (3.5-5.1); SODIUM LEVEL 140 MEQ/L (136-145); TOTAL PROTEIN 6.4 GM/DL (6.4-8.2)
== END ==
LOC: M LAB 16:57
PROVIDERS: ATTEND Nurse Practitioner Family
DX: R19.7 Diarrhea, unspecified (principal); D72.829 Elevated white blood cell count, unspecified

== ENCOUNTER → 2020-11-21 | Outpatient (CLI) | payer OTHER ==
--- NOTE | 2020-11-21 16:52 | REP ---
INDICATION: SHORTNESS OF BREATH. COMPARISON: 07/05/2020 a frontal view of the chest TECHNIQUE: PA and lateral FINDINGS: Since the last examination bilateral lower lung field opacities have developed. Bilateral CP angle blunting has also developed since the last exam. Cardiomediastinal silhouette is unchanged. The heart is not enlarged. The osseous structures are stable and intact. IMPRESSION: Bibasilar opacities as described above with bilateral pleural effusions right greater than left. Findings are consistent with pneumonia. <Electronically signed by Denys Collado > 11/21/20 [id number]
== END ==
LOC: M RAD 16:02
PROVIDERS: ATTEND Nurse Practitioner Family
DX: R91.8 Other nonspecific abnormal finding of lung field (principal); R06.02 Shortness of breath

== ENCOUNTER → 2020-11-26 | Outpatient (REF) | payer OTHER | LOC: M SFHCPLAZ 13:01 | PROVIDERS: ATTEND Internal Medicine Infectious Disease | DX: A49.8 Other bacterial infections of unspecified site (principal) ==

== ENCOUNTER → 2020-11-27 | Outpatient (CLI) | payer OTHER ==
[2020-11-27 13:41] LABS: HEMATOCRIT 29.9 % (36.0-47.0); HEMOGLOBIN 10.4 g/dl (12.0-15.5); MEAN CORPUSCULAR HEMOGLOBIN 32.7 pg (27.0-33.0); MEAN CORPUSCULAR HGB CONC 34.8 g/dl (32.0-36.5); PLATELET COUNT, AUTOMATED 641 10^3/uL (150-450); RED BLOOD COUNT 3.18 10^6/uL (4.00-5.40)
[2020-11-27 14:03] LABS: ERYTHROCYTE SEDIMENTATION RATE 65 mm/hr (0-20)
[2020-11-27 14:15] LABS: ATYPICAL LYMPH 1 % (0-5); BASOPHILS 4 % (0-1); EOSINOPHILS 1 % (0-3); LYMPHOCYTES 11 % (16-44); MONOCYTES 1 % (0-5); NEUTROPHILS 80 % (28-66)
[2020-11-27 14:16] LABS: PLATELET ESTIMATE INCREASED (NORMAL)
[2020-11-27 17:59] LABS: ALBUMIN 2.2 GM/DL (3.2-5.2); ALT/SGPT 91 U/L (12-78); BILIRUBIN,TOTAL 3.6 MG/DL (0.2-1.0); BLOOD UREA NITROGEN 3 MG/DL (7-18); C REACTIVE PROTEIN QUANTITATIV 8.28 MG/DL (0.00-0.30); CALCIUM LEVEL 8.7 MG/DL (8.5-10.1); CARBON DIOXIDE LEVEL 27 MEQ/L (21-32); CHLORIDE LEVEL 108 MEQ/L (98-107); CREATININE FOR GFR 0.52 MG/DL (0.55-1.30); GLOMERULAR FILTRATION RATE > 60.0 (>60); GLUCOSE, FASTING 117 MG/DL (70-100); NT-PRO BNP 98 PG/ML (<125); POTASSIUM SERUM 3.6 MEQ/L (3.5-5.1); SODIUM LEVEL 143 MEQ/L (136-145); TOTAL PROTEIN 6.3 GM/DL (6.4-8.2)
== END ==
LOC: M PLALAB 09:36
PROVIDERS: ATTEND Internal Medicine Infectious Disease
DX: A49.8 Other bacterial infections of unspecified site (principal); R05.9 Cough, unspecified; J90 Pleural effusion, not elsewhere classified

== ENCOUNTER → 2020-11-30 | Outpatient (CLI) | payer OTHER | LOC: M LAB 16:38 | PROVIDERS: ATTEND Internal Medicine Infectious Disease | DX: D72.829 Elevated white blood cell count, unspecified (principal) ==

== ENCOUNTER → 2021-01-03 | Outpatient (CLI) | payer OTHER ==
--- NOTE | 2021-01-03 11:23 | REP ---
INDICATION: UPPER RESPIRATORY INFECTION. COMPARISON: 11/21/2020 TECHNIQUE: PA and lateral FINDINGS: The superior mediastinal structures are midline. The cardiac silhouette is unremarkable in size, shape, and position. The diaphragmatic surfaces of the lungs are regular, and the costophrenic angles are clear. The pulmonary calderon are clear. The bibasilar opacities seen on the prior exam have completely cleared. The imaged osseous structures are intact. IMPRESSION: There is no acute cardiopulmonary disease. <Electronically signed by Denys Collado > 01/03/21 1118
== END ==
LOC: M PLAIMG 10:32
PROVIDERS: ATTEND Nurse Practitioner Family
DX: J06.9 Acute upper respiratory infection, unspecified (principal)

== ENCOUNTER 2021-01-12 13:30 | Emergency (ER) | payer OTHER ==
[~2021-01-12] VITALS: Ht 167.6 cm; Wt 109.1 kg
[2021-01-12] MEDS ORDERED: SPIR100T3 (13:39)
[2021-01-12] MEDS ORDERED: BENZ200C70 (13:39)
[2021-01-12] MEDS ORDERED: FURO80TA2 (13:39)
[2021-01-12] MEDS ORDERED: SERT50TA29 (13:39)
[2021-01-12] MEDS ORDERED: FOLI1TAB11 (13:40)
[2021-01-12 15:12] VITALS: O2SAT 98
[2021-01-12] MEDS ORDERED: NS 1,000 ML IV ONE ×4 (15:35→16:55)
[2021-01-12 16:22] LABS: VENOUS BASE EXCESS 0.1 (-2.0-2.0); VENOUS HCO3 23.8 MEQ/L (23.0-27.0); VENOUS O2 SATURATION 80.7 % (60.0-80.0); VENOUS PARTIAL PRESSURE CO2 34.4 mmHg (38.0-50.0); VENOUS PARTIAL PRESSURE O2 46.7 mmHg (30.0-50.0); VENOUS PH 7.458 UNITS (7.330-7.430); VENOUS STANDARD HCO3 24.4 MEQ/L; VENOUS TOTAL CO2 24.9 MEQ/L (24.0-28.0)
[2021-01-12 16:31] LABS: MEAN CORPUSCULAR HEMOGLOBIN 29.5 pg (27.0-33.0); MEAN CORPUSCULAR HGB CONC 37.2 g/dl (32.0-36.5); MEAN CORPUSCULAR VOLUME 79.3 fl (80.0-96.0); RED BLOOD COUNT 2.51 10^6/uL (4.00-5.40); WHITE BLOOD COUNT 19.8 10^3/uL (4.0-10.0)
[2021-01-12 16:40] LABS: INR 4.48; PROTHROMBIN TIME 42.7 SECONDS (12.7-14.5)
[2021-01-12 16:42] LABS: HEMATOCRIT 19.9 % (36.0-47.0); HEMOGLOBIN 7.4 g/dl (12.0-15.5); PLATELET COUNT, AUTOMATED 196 10^3/uL (150-450)
[2021-01-12 16:45] LABS: BASOPHILS 1 % (0-1); LYMPHOCYTES 23 % (16-44); MONOCYTES 9 % (0-5); MYELOCYTES 1 % (0-0); NEUTROPHILS 60 % (28-66); TOXIC VACUOLATION 3+
[2021-01-12 16:49] LABS: ANISOCYTOSIS 1+
[2021-01-12 16:50] LABS: PLATELET ESTIMATE NORMAL (NORMAL)
[2021-01-12 17:14] LABS: CREATININE FOR GFR 2.98 MG/DL (0.55-1.30); GLOMERULAR FILTRATION RATE 18.9 (>60); MB/CK RELATIVE INDEX 1.24 (< OR =4)
[2021-01-12 17:15] LABS: ALBUMIN 1.6 GM/DL (3.2-5.2); BILIRUBIN,DIRECT 5.4 MG/DL (0.0-0.2); BILIRUBIN,TOTAL 7.2 MG/DL (0.2-1.0); CALCIUM LEVEL 7.7 MG/DL (8.5-10.1); FREE T3 0.6 PG/ML (2.2-4.0); MAGNESIUM LEVEL 1.4 MG/DL (1.8-2.4); POTASSIUM SERUM 3.5 MEQ/L (3.5-5.1); THYROID STIMULATING HORMONE 0.797 uIU/ML (0.358-3.740)
[2021-01-12 17:17] LABS: RSV AMPLIFICATION NEGATIVE (NEGATIVE)
[2021-01-12] MEDS ORDERED: PIPERACILLIN/TAZOBACTAM SOD 3.375 GM in D5W MINI-BAG PLUS 50 ML IV ONE (17:50)
[2021-01-12 19:55] VITALS: BP 131/61
[2021-01-12 20:10] VITALS: BP 125/60
[2021-01-12 20:45] VITALS: BP 126/60
== END 2021-01-12 20:52 | disposition short-term general hospital (02) ==
LOC: M ED 13:30
DX: U07.1 COVID-19 (principal); K72.90 Hepatic failure, unspecified without coma; N17.9 Acute kidney failure, unspecified; N39.0 Urinary tract infection, site not specified; R00.0 Tachycardia, unspecified; K76.0 Fatty (change of) liver, not elsewhere classified; E87.1 Hypo-osmolality and hyponatremia; I95.9 Hypotension, unspecified; D68.9 Coagulation defect, unspecified; A41.9 Sepsis, unspecified organism; E87.6 Hypokalemia; E83.42 Hypomagnesemia; K21.9 Gastro-esophageal reflux disease without esophagitis; F31.9 Bipolar disorder, unspecified; F41.9 Anxiety disorder, unspecified; Z98.84 Bariatric surgery status; Z79.899 Other long term (current) drug therapy
CPT/HCPCS: 36415; 36430; 71045; 76705; 80048; 80076; 81001; 82140; 82550; 82553; 82728; 82803; 83605; 83615; 83690; 83735; 84443; 84481; 84702; 85025; 85384; 85610; 86850; 86900; 86901; 86920; 87040; 87086; 87631; 93005; 93041; 94760; 96365; 96366; 99285; J2543; P9016